=== PATIENT | female | born 2000 | race Caucasian/White ===

== ENCOUNTER 2018-10-02 14:54 | Emergency (ER) | payer BC, SELFPAY ==
[2018-10-02] VITALS (9 sets, daily range): BP systolic 117–130; BP diastolic 56–67; PULSE 68–90; RESP 16–21; TEMP 36.7; O2SAT 97–100
--- NOTE | 2018-10-02 15:19 | DI.RAD_ITS ---
SYMPTOM/DIAGNOSIS: COUGH, FEVER PA AND LATERAL CHEST: The heart is normal in size. The lungs are clear. The mediastinal structures and pleura appear intact. CONCLUSION: Normal chest.
--- NOTE | 2018-10-02 15:20 | W.ED.GENAD ---
Discharge Plan Disposition Patient Disposition: HOME Condition: Improving Discharge Details Chief Complaint: Sorethroat Clinical Impression: Acute streptococcal pharyngitis Primary Care Provider: Kristy Valadez ED Provider: Jose Noble Home Meds and New Rx's Prescriptions: New cefdinir 300 mg capsule 300 mg PO Q12H 10 Days Qty: 20 RF: 0 Continued levonorgestrel-ethinyl estrad [Aviane] 1 EACH tablet 1 tab-cap PO DAILY Qty: 3 RF: 3 multivitamin 1 EACH tablet 1 ea PO DAILY RF: 0 Discharge Instructions Instructions: Pharyngitis (ED) Additional Instructions: Please stop your amoxicillin, begin Cefdinir as prescribed. Tylenol and/or ibuprofen as needed for pain. Small, frequent sips of fluids to maintain hydration. May use popsicles for comfort. Return for worsening or any other acute concerns, follow-up follow-up with primary care if not improving in 3 to 5 days time. Medical Decision Making 18-year-old female presents from home with 7 days of sore throat despite being treated with amoxicillin 2 times daily for which she states was positive strep throat. On exam she has evidence of persistent pharyngitis. She is afebrile and otherwise well-appearing. Differential diagnosis would include persistent streptococcal pharyngitis, must exclude concomitant glandular fever/mononucleosis. As well patient has developed a cough and subjective report of fever. She is referred for laboratory testing, rapid strep test, chest x-ray and screening EKG. Rapid strep test was positive, Diagnostics are otherwise reassuring. Chest x-ray unremarkable. Patient improved with dexamethasone for its anti-inflammatory properties. She has had minimal response to twice daily amoxicillin for known streptococcal pharyngitis, I will switch her to a course of Cefdinir. She is stable and improved appropriate for discharge to home. Lab Data Lab results reviewed: Yes I reviewed the patient's lab results. ECG Data Attestation: I personally reviewed and interpreted this ECG (s) as follows: Interpretation: Normal sinus rhythm, rate of 83, QRS is narrow, no ST segment elevation HPI General Mode of arrival: ambulatory. Date/Time Provider Initiated Documentation: 10/02/18 14:58. Limitations to Documentation: no limitations. Information obtained by: patient. History of Present Illness 18 year old F presents to the emergency department with the chief complaint of Persistent sore throat x7 days despite amoxicillin, described as moderate, Quality is described as aching and dull, and is localized to the chest. Patient reports no radiation. Patient started experiencing this day(s) and it has been constant. No relieving factors improve symptom(s), No exacerbating factors reported . Patient notes cough and fever/chills. Patient did receive the following treatments prior to arrival, NSAID Related Data Home Medications Medication Instructions Recorded Confirmed levonorgestrel-ethinyl estrad 1 tab-cap PO DAILY #3 pack 12/08/17 [Aviane] multivitamin 1 ea PO DAILY 01/22/18 cefdinir 300 mg PO Q12H 10 Days #20 cap 10/02/18 Previous Rx's Medication Instructions Recorded levonorgestrel-ethinyl estrad 1 tab-cap PO DAILY #3 pack 12/08/17 [Aviane] cefdinir 300 mg PO Q12H 10 Days #20 cap 10/02/18 Allergies Allergy/AdvReac Type Severity Reaction Status Date / Time No Known Drug Allergies Allergy Unverified 12/13/17 21:11 seasonal allergies Allergy Congestion Uncoded 12/13/17 21:11 General Stated Complaint: Sorethroat BORIS: 3 Review of Systems Review of Systems No leg pain or swelling. No recent travel. Positive sick contacts with her sister. Patient has been taking amoxicillin for 7 days time and ongoing sore throat. 8 systems reviewed and otherwise negative [facility] Medical History Menstrual irregularity Syncope Urticaria Surgical History Rembrandt teeth extractions (~2014) Family History Grandfather Essential hypertension Myocardial infarction Mother No problems noted. Father No problems noted. Sister No problems noted. Grandfather No problems noted. Grandmother No problems noted. Grandmother No problems noted. Social History Smoking/Tobacco Use Status: Never Alcohol Intake: never Substance use type: does not use Seatbelt use: always Do you feel safe at home: Yes Do you feel safe in your relationship?: Yes Exam Narrative Exam Narrative: GEN: awake, alert, oriented 3. Pleasant, well groomed, interactive. HEAD: Normocephalic, atraumatic ENT: Mucous membranes moist, with swollen tonsillar pillars with scant white exudate present on the left. The uvula is midline and there is no asymmetry, tympanic membranes clear bilaterally, External ear exam unremarkable EYES: PERRL, EOMI NECK: Full ROM, tender anterior submandibular MILDRED, no menigismus CHEST/RESP: Nontender, clear to auscultation bilateral, no wheeze/rhonchi/rales CARDIOVASCULAR: RRR, no murmur, rub demi. 2+ Rad pulse bilateral ABDOMEN: Soft, nontender, no mass. +Bowel sounds EXT: Full ROM, no edema, no rash Neuro: Grossly normal neurologic exam, conversant, interactive. Psych: Speech fluent, thoughts congruent, affect normal Course Vital Signs Temperature 36.7 C 10/02/18 15:09 Pulse 80 10/02/18 15:09 Respiratory Rate 16 10/02/18 15:09 Blood Pressure 117/56 L 10/02/18 15:09 Pulse Oximetry 100 10/02/18 15:09 Temperature 36.7 C 10/02/18 15:09 Temperature Source Skin 10/02/18 15:09 Pulse 80 10/02/18 15:09 Respiratory Rate 16 10/02/18 15:09 Respiratory Effort Non-Labored 10/02/18 15:19 Blood Pressure 117/56 L 10/02/18 15:09 Blood Pressure Position Sitting 10/02/18 15:09 Pulse Oximetry 100 10/02/18 15:09 Oxygen Delivery Method Room Air 10/02/18 15:09 Oxygen Flow Rate 0 10/02/18 15:09 Pain Level 5 10/02/18 15:09
--- NOTE | 2018-10-02 15:24 | ED.GENADUL_ITS ---
Discharge Plan Disposition Patient Disposition: HOME Condition: Improving Discharge Details Chief Complaint: Sorethroat Clinical Impression: Acute streptococcal pharyngitis Primary Care Provider: Kristy Valadez ED Provider: Jose Noble Home Meds and New Rx's Prescriptions: New cefdinir 300 mg capsule 300 mg PO Q12H 10 Days Qty: 20 RF: 0 Continued levonorgestrel-ethinyl estrad [Aviane] 1 EACH tablet 1 tab-cap PO DAILY Qty: 3 RF: 3 multivitamin 1 EACH tablet 1 ea PO DAILY RF: 0 Discharge Instructions Instructions: Pharyngitis (ED) Additional Instructions: Please stop your amoxicillin, begin Cefdinir as prescribed. Tylenol and/or ibuprofen as needed for pain. Small, frequent sips of fluids to maintain hydration. May use popsicles for comfort. Return for worsening or any other acute concerns, follow-up follow-up with primary care if not improving in 3 to 5 days time. Medical Decision Making 18-year-old female presents from home with 7 days of sore throat despite being treated with amoxicillin 2 times daily for which she states was positive strep throat. On exam she has evidence of persistent pharyngitis. She is afebrile and otherwise well-appearing. Differential diagnosis would include persistent streptococcal pharyngitis, must exclude concomitant glandular fever/mononucleosis. As well patient has developed a cough and subjective report of fever. She is referred for laboratory testing, rapid strep test, chest x-ray and screening EKG. Rapid strep test was positive, Diagnostics are otherwise reassuring. Chest x- ray unremarkable. Patient improved with dexamethasone for its anti-inflammatory properties. She has had minimal response to twice daily amoxicillin for known streptococcal pharyngitis, I will switch her to a course of Cefdinir. She is stable and improved appropriate for discharge to home. Lab Data Lab results reviewed: Yes I reviewed the patient's lab results. ECG Data Attestation: I personally reviewed and interpreted this ECG (s) as follows: Interpretation: Normal sinus rhythm, rate of 83, QRS is narrow, no ST segment elevation HPI General Mode of arrival: ambulatory . Date/Time Provider Initiated Documentation: 10/02/18 14:58 . Limitations to Documentation: no limitations . Information obtained by: patient . History of Present Illness 18 year old F presents to the emergency department with the chief complaint of Persistent sore throat x7 days despite amoxicillin, described as moderate, Quality is described as aching and dull, and is localized to the chest. Patient reports no radiation. Patient started experiencing this day(s) and it has been constant. No relieving factors improve symptom(s), No exacerbating factors reported . Patient notes cough and fever/chills. Patient did receive the following treatments prior to arrival, NSAID Related Data Home Medications Medication Instructions Recorded Confirmed levonorgestrel-ethinyl estrad 1 tab-cap PO DAILY #3 pack 12/08/17 [Aviane] multivitamin 1 ea PO DAILY 01/22/18 cefdinir 300 mg PO Q12H 10 Days #20 cap 10/02/18 Previous Rx's Medication Instructions Recorded levonorgestrel-ethinyl estrad 1 tab-cap PO DAILY #3 pack 12/08/17 [Aviane] cefdinir 300 mg PO Q12H 10 Days #20 cap 10/02/18 Allergies Allergy/AdvReac Type Severity Reaction Status Date / Time No Known Drug Allergies Allergy Unverified 12/13/17 21:11 seasonal allergies Allergy Congestion Uncoded 12/13/17 21:11 General Stated Complaint: Sorethroat BORIS: 3 Review of Systems Review of Systems No leg pain or swelling. No recent travel. Positive sick contacts with her sister. Patient has been taking amoxicillin for 7 days time and ongoing sore throat. 8 systems reviewed and otherwise negative [facility] Medical History Menstrual irregularity Syncope Urticaria Surgical History Sylvester teeth extractions (~2014) Family History Grandfather Essential hypertension Myocardial infarction Mother No problems noted. Father No problems noted. Sister No problems noted. Grandfather No problems noted. Grandmother No problems noted. Grandmother No problems noted. Social History Smoking/Tobacco Use Status: Never Alcohol Intake: never Substance use type: does not use Seatbelt use: always Do you feel safe at home: Yes Do you feel safe in your relationship?: Yes Exam Narrative Exam Narrative: GEN: awake, alert, oriented 3. Pleasant, well groomed, interactive. HEAD: Normocephalic, atraumatic ENT: Mucous membranes moist, with swollen tonsillar pillars with scant white exudate present on the left. The uvula is midline and there is no asymmetry, tympanic membranes clear bilaterally, External ear exam unremarkable EYES: PERRL, EOMI NECK: Full ROM, tender anterior submandibular MILDRED, no menigismus CHEST/RESP: Nontender, clear to auscultation bilateral, no wheeze/rhonchi/rales CARDIOVASCULAR: RRR, no murmur, rub demi. 2+ Rad pulse bilateral ABDOMEN: Soft, nontender, no mass. +Bowel sounds EXT: Full ROM, no edema, no rash Neuro: Grossly normal neurologic exam, conversant, interactive. Psych: Speech fluent, thoughts congruent, affect normal Course Vital Signs Temperature 36.7 C 10/02/18 15:09 Pulse 80 10/02/18 15:09 Respiratory Rate 16 10/02/18 15:09 Blood Pressure 117/56 L 10/02/18 15:09 Pulse Oximetry 100 10/02/18 15:09 Temperature 36.7 C 10/02/18 15:09 Temperature Source Skin 10/02/18 15:09 Pulse 80 10/02/18 15:09 Respiratory Rate 16 10/02/18 15:09 Respiratory Effort Non-Labored 10/02/18 15:19 Blood Pressure 117/56 L 10/02/18 15:09 Blood Pressure Position Sitting 10/02/18 15:09 Pulse Oximetry 100 10/02/18 15:09 Oxygen Delivery Method Room Air 10/02/18 15:09 Oxygen Flow Rate 0 10/02/18 15:09 Pain Level 5 10/02/18 15:09
[2018-10-02] MEDS: Dexamethasone 4 MG/ML VIAL 8 MG IVP (15:25)
[2018-10-02 15:35] LABS: Absolute Basophil Count 0.04 k/cumm (0.0-0.2); Absolute Eosinophil Count 0.04 k/cumm (0.0-0.7); Absolute Lymphocyte Count 2.52 k/cumm (1.2-3.4); Absolute Neutrophil Count 3.52 k/cumm (1.2-6.7); Basophils % 0.6; Eosinophils % 0.6; HCT 38.4 % (36.0-46.0); HGB 12.4 g/dL (12.0-15.5); Mean Corp. HGB Concentration 32.3 g/dL (32.0-36.0); Mean Corpuscular Hemoglobin 29.7 pg (27.0-33.0); Mean Corpuscular Volume 92.1 fL (80-95); Mean Platelet Volume 10.4 fL (8.0-11.0); Monocytes % 10.3; Neutrophils % 51.5; Platelet Count 275 x1000/uL (130-400); RBC 4.17 m/cumm (4.00-5.20); RBC Distribution Width 13.4 % (11.7-14.6); White Blood Cell Count 6.82 k/cumm (4.4-10.8)
[2018-10-02 15:44] LABS: Mono Screening Negative (Negative)
[2018-10-02 15:49] LABS: ALT 21 U/L (12-78); AST 12 U/L (15-37); Albumin 3.5 g/dL (3.4-5.0); Alkaline Phosphatase 60 U/L (46-116); Anion Gap 7.3 mmol/L (3-11); BUN 8 mg/dL (7-18); Bilirubin, Total 0.5 mg/dL (0.2-1.0); CO2 29.7 mmol/L (21.0-32.0); CREATININE 0.77 mg/dL (0.55-1.02); Chloride 102 mmol/L (98-107); Glucose 98 mg/dL (70-100); Potassium 3.8 mmol/L (3.5-5.1); Sodium 139 mmol/L (136-145); Total Protein 7.8 g/dL (6.4-8.2)
--- NOTE | 2018-10-02 16:18 | DI.VRAD_ITS ---
EXAM: XR Chest, 2 Views EXAM DATE/TIME: 10/02/2018 3:21 PM CLINICAL HISTORY: 18 years old, female; Signs and symptoms; Cough and fever; Patient HX: Cough, fever; Per PT: Cough for month TECHNIQUE: Imaging protocol: XR of the chest, 2 views. COMPARISON: CR ABD FLAT UPRIGHT PA CHEST 12/13/2017 9:58 PM FINDINGS: Lungs: Unremarkable. No consolidation. Pleural space: Unremarkable. No pleural effusion. No pneumothorax. Heart/Mediastinum: Unremarkable. No cardiomegaly. Bones/joints: Unremarkable. IMPRESSION: No acute findings. Dictated and Authenticated by: Jonh Ivan MD. Ordering:SUNIL Garcia MD
[2018-10-02] MEDS: Cefdinir 300 MG CAP PO (16:50)
== END 2018-10-02 16:55 | disposition home or self-care (01) ==
LOC: ER 17:05
PROVIDERS: Emergency Provider Emergency Medicine; PCP Nurse Practitioner Family
DX: J02.0 Streptococcal pharyngitis (principal); R05 Cough; R50.9 Fever, unspecified
CPT/HCPCS: 36415; 80053; 81025; 87880; 93005; 96374; 96375; 99285; 71046; 85025; 86308; 93010; 99284; J1100

== ENCOUNTER 2018-10-16 18:57 | Outpatient (REF) | payer BC, SELFPAY | END 2018-10-16 19:17 | LOC: LBN 18:57 | PROVIDERS: PCP Nurse Practitioner Family; Visit Provider Nurse Practitioner Family | DX: J02.0 Streptococcal pharyngitis (principal) | CPT/HCPCS: 87070 ==

== ENCOUNTER 2018-11-18 00:46 | Outpatient (CLI) | payer BC, SELFPAY ==
--- NOTE | 2018-11-18 07:30 | MERGE_ITS ---
*[facility]* *[facility]* [address] [place] [address] Date of study: 11/18/2018 Transthoracic Echocardiography M-mode, complete 2D, complete spectral Doppler, and color Doppler *STUDY CONCLUSIONS* Impressions: Normal study. Summary: 1. Left ventricle: The cavity size was normal. Wall thickness was normal. Systolic function was normal. The estimated ejection fraction was 60-65%. Wall motion was normal; there were no regional wall motion abnormalities. 2. Right ventricle: The cavity size was normal. Wall thickness was normal. Systolic function was normal. *PATIENT PRESENTATION* Height: 165.1cm ((65in) ) S/D Pressure: 114 / 65 Weight: 72.6kg ((159.7lb) ) BSA: 1.84m^2 Test start time: 07:40 AM. Test stop time: 08:40 AM. PERFORMING Unknown PERFORMING [facility] EXTENSION DIVISION DIRECTOR RT Adrián (R)(CT), [facility] ORDERING Kristy Valadez REFERRING Kristy Valadez *PROCEDURE DATA* Procedure information: The patient was identified by two identifiers. This study was interpreted by [facility]. Pertinent images and digital data are archived for permanent storage and are available for subsequent review. No prior study was available for comparison. Study status: Routine. Transthoracic echocardiography. M-mode, complete 2D, complete spectral Doppler, and color Doppler. A Transthoracic Echocardiogram was performed. Scanning was performed from the parasternal, apical, subcostal, and suprasternal notch acoustic windows. Images were obtained using an [id number] cardiac ultrasound machine. Image quality was good. Study completion: The patient tolerated the procedure well. There were no complications. History: PMH: Dizziness with running. Known systolic murmur r68.89 decreased exercise tolerance. *CARDIAC ANATOMY* Left ventricle: The cavity size was normal. Wall thickness was normal. Systolic function was normal. The estimated ejection fraction was 60-65%. Wall motion was normal; there were no regional wall motion abnormalities. Diastolic parameters were normal. Aortic valve: Trileaflet; normal thickness leaflets. Mobility was not restricted. Doppler: Transvalvular velocity was within the normal range. There was no stenosis. There was no significant regurgitation. VTI ratio of LVOT to aortic valve: 0.69. Valve area (VTI): 2.2cm^2. Indexed valve area (VTI): 1.2cm^2/m^2. Peak velocity ratio of LVOT to aortic valve: 0.71. Valve area (Vmax): 2.3cm^2. Indexed valve area (Vmax): 1.3cm^2/m^2. Mean velocity ratio of LVOT to aortic valve: 0.59. Valve area (Vmean): 1.9cm^2. Indexed valve area (Vmean): 1cm^2/m^2. Mean gradient (S): 4.6mm Hg. Peak gradient (S): 7.3mm Hg. Aorta: Aortic root: The aortic root was normal in size. Ascending aorta: The ascending aorta was normal in size. Mitral valve: Structurally normal valve. Mobility was not restricted. Doppler: Transvalvular velocity was within the normal range. There was no evidence for stenosis. There was no significant regurgitation. Valve area by pressure half-time: 4.2cm^2. Indexed valve area by pressure half-time: 2.3cm^2/m^2. Peak gradient (D): 3.1mm Hg. Left atrium: The atrium was normal in size. Right ventricle: The cavity size was normal. Wall thickness was normal. Systolic function was normal. Pulmonic valve: Structurally normal valve. Doppler: Transvalvular velocity was within the normal range. There was no evidence for stenosis. There was trivial regurgitation. Peak gradient (S): 3.5mm Hg. Tricuspid valve: Structurally normal valve. Doppler: Transvalvular velocity was within the normal range. There was no evidence for stenosis. There was trivial regurgitation. Pulmonary artery: Systolic pressure could not be accurately estimated. Right atrium: The atrium was normal in size. Pericardium: There was no pericardial effusion. Systemic veins: Inferior vena cava: Well visualized. The vessel was patent and normal in size. The respirophasic diameter changes were in the normal range (greater than or equal to 50%). Baseline ECG: Normal sinus rhythm. Measurements Left ventricle Value Reference LV ID, ED, PLAX 4.3 cm 3.5 - 6.0 LV ID, ES, PLAX 2.7 cm 2.1 - 4.0 LV PW thickness, ED, PLAX 0.9 cm LV end-diastolic volume, 1-p A2C 91 ml LV ejection fraction, 1-p A2C 64 % LV end-diastolic volume, 1-p A4C 100 ml LV ejection fraction, 1-p A4C 66 % LV e', lateral 0.222 m/sec LV E/e', lateral 4 LV e', medial 0.131 m/sec LV E/e', medial 7 LV e', average 0.176 m/sec LV E/e', average 5 Ventricular septum Value Reference IVS thickness, ED, PLAX 0.8 cm LVOT Value Reference LVOT ID, A-P 2.0 cm LVOT area 3.3 cm^2 LVOT peak velocity, S 0.96 m/sec LVOT mean velocity, S 0.61 m/sec LVOT VTI, S 22.0 cm LVOT peak gradient, S 3.7 mm Hg LVOT mean gradient, S 1.8 mm Hg Stroke volume (SV), LVOT DP 72 ml Stroke index (SV/bsa), LVOT DP 39 ml/m^2 Aortic valve Value Reference Aortic valve peak velocity, S 1.4 m/sec Aortic valve mean velocity, S 1.03 m/sec Aortic valve VTI, S 32.0 cm Aortic mean gradient, S 4.6 mm Hg Aortic peak gradient, S 7.3 mm Hg VTI ratio, LVOT/AV 0.69 Aortic valve area, VTI 2.2 cm^2 Velocity ratio, peak, LVOT/AV 0.71 Aortic valve area, peak velocity 2.3 cm^2 Velocity ratio, mean, LVOT/AV 0.59 Aortic valve area, mean velocity 1.9 cm^2 Aortic valve area/bsa, mean velocity 1 cm^2/m^2 Aorta Value Reference Aortic root ID, ED 2.7 cm Ascending aorta ID, A-P, S 2.2 cm RVOT Value Reference RVOT VTI, S 17.5 cm Left atrium Value Reference LA ID, A-P, ES 2.8 cm LA ID/bsa, A-P 1.5 cm/m^2 <=2.2 LA area, ES, A4C 14.9 cm^2 8.8 - 23.4 LA area, ES, A2C 14 cm^2 LA volume/bsa, ES, 1-p A4C 22 ml/m^2 LA volume, ES, 2-p 38 ml LA volume/bsa, ES, 2-p 20 ml/m^2 LA/aortic root ratio 1.03 Mitral valve Value Reference Mitral E-wave peak velocity 0.87 m/sec Mitral A-wave peak velocity 0.35 m/sec Mitral deceleration time 180 ms 150 - 230 Mitral pressure half-time 52 ms Mitral peak gradient, D 3.1 mm Hg Mitral E/A ratio, peak 2.47 Mitral valve area, PHT, DP 4.2 cm^2 Pulmonary veins Value Reference Pulmonary vein peak velocity, S 0.47 m/sec Pulmonary vein peak velocity, D 0.67 m/sec Pulmonary vein velocity ratio, peak, 0.71 S/D Tricuspid valve Value Reference Tricuspid regurg peak velocity 2.2 m/sec Tricuspid peak RV-RA gradient 19.6 mm Hg Right atrium Value Reference RA area, ES, A4C 8.8 cm^2 8.3 - 19.5 Pulmonic valve Value Reference Pulmonic peak gradient, S 3.5 mm Hg Legend: (L) and (H) ingrid values outside specified reference range. I have personally reviewed the images and have reviewed and edited the reported findings. Electronically signed by Augustine Dozier 11/18/2018 09:20
== END 2018-11-18 01:06 ==
PROVIDERS: PCP Nurse Practitioner Family; Visit Provider Nurse Practitioner Family
DX: R42 Dizziness and giddiness (principal); R01.1 Cardiac murmur, unspecified; R68.89 Other general symptoms and signs
CPT/HCPCS: 93306

== ENCOUNTER 2019-04-26 05:59 | Day surgery (SDC) | payer BC, SELFPAY ==
[2019-04-26] VITALS (7 sets, daily range): BP systolic 118–147; BP diastolic 55–70; PULSE 68–81; RESP 12–24; TEMP 36.4–37; O2SAT 98–100
[2019-04-26] MEDS: Lactated Ringers 1,000 ML 80 ML IV (07:30)
--- NOTE | 2019-04-26 07:33 | W.PM.DSUDISC ---
Discharge Plan Disposition Patient Disposition: HOME Condition: Good Discharge Details Reason For Visit: tonsils and frenulum Attending Provider: Saleem Arriola Primary Care Provider: Kristy Valadez Home Meds and New Rx's Prescriptions: No Action levonorgestrel-ethinyl estrad [Aviane] 1 EACH tablet 1 tab-cap PO DAILY Qty: 3 RF: 3 Discharge Instructions Additional Instructions: see sheet Activity:: Activity as Tolerated Remove Dressings/Wound Care:: 24 hours Shower/Bathe:: 24 hours Diet:: As Tolerated DS: Diagnosis Discharge Diagnosis (1) Ankyloglossia: Status: Acute (2) Tonsillar calculus: Status: Acute (3) Tonsillar hypertrophy: Status: Acute (4) Chronic tonsillitis: Status: Acute (5) Chronic rhinitis: Status: Acute
[2019-04-26] MEDS: Oxymetazolone 0.05% SPRAY 15 ML BTL (07:59)
--- NOTE | 2019-04-26 08:00 | TONSIL_PTH ---
PATIENT: Chapis Hendrickson LOC: [facility] U#:[id number] AGE/SX: 18/F ROOM: RE04/26/[address]: Saleem Arriola DO : 2000 BED: DIS: 04/26/2019 SPEC #: [id number] RECD: 04/26/19 12:41 STATUS: KOURTNYE REQ #: [id number] BARBRA: 04/26/19 08:[address]: Saleem Arriola DEPT: Surgical Specimen RECD BY: Claudia Ellington ENTERED: 04/26/19 12:43 SP TYPE: TONSIL OTHR DR: MILA Mendez Tissues: 1 - TONSIL AGE 17 & OVER 2 - TONSIL AGE 17 & OVER Procedures: GROSS AND MICRO LEVEL 3 Comments: [id number]
[2019-04-26] MEDS: oxyCODONE 5 mg/Acetaminophen 325 mg TAB 1 TAB PO (09:23)
--- NOTE | 2019-04-26 10:24 | ROE_ITS ---
DATE OF PROCEDURE: April 26, 2019 PREOPERATIVE DIAGNOSIS: 1. History of Strep pharyngitis. 2. Chronic tonsillitis. 3. Chronic tonsillar hypertrophy. 4. Tonsillar calculus. 5. Chronic rhinitis. 6. Ankyloglossia. POSTOPERATIVE DIAGNOSIS: Same. PROCEDURE: Tonsillectomy and frenulectomy. SURGEON: Saleem Arriola D.O. ANESTHESIA: General. ESTIMATED BLOOD LOSS: 1 cc COMPLICATIONS: None. CONDITION: The patient tolerated the procedure well and was stable to PACU. FINDINGS: 3+ cryptic tonsils and prominent frenulum dorsal tongue to floor of mouth, limiting mobili ty. INDICATIONS FOR PROCEDURE: This is a pleasant 18-year-old female who presents with a history of the above-stated chronic tonsillar complaints as well as tongue tie. The decision was made forth to proc eed with tonsillectomy and frenulectomy. Risks and complications were discussed in detail. Consent was placed in the Chart. PROCEDURE IN DETAIL: Patient was brought back to the operating suite in stable condition, placed sup ine on the operating table, and intubated in normal fashion. The table was rotated 90 degrees. There was no evidence of submucosal clefting or bifid uvula. The McIvor retractor was placed in the oral ca vity and suspended from the Wright stand. The right tonsil was grasped in the superior pole and mediali zed. Pinpoint cautery was used to develop the peritonsillar fascial plane, dissection was carried out to the upper and mid portions of the tonsil with final amputation conducted with suction cautery. Th ere was no bleeding within the right tonsillar fossa. Next, the left tonsil was grasped in the superi or pole with a curved Allis forceps and medialized. Pinpoint cautery was used to develop the peritons illar fascial plane. Dissection was carried out in the plane in the superior and mid portion of the t onsils. Final amputation was conducted with suction cautery without bleeding within left fossa, Valsa lva was performed without bleeding. TMJ's were checked and were free of dislocation. Gastric contents suctioned. The endotracheal tube was moved to the left gutter, the floor mouth was exposed. The prominent, teth ered frenulum of the undersurface of the tongue to the floor of the mouth was lysed with cautery and no sutures required. Frenulectomy performed with increased mobility. The patient tolerated the proc edure well and went to PACU in stable condition.
== END 2019-04-26 09:55 | disposition home or self-care (01) ==
PROVIDERS: PCP Nurse Practitioner Family; Visit Provider Otolaryngology Otolaryngology/Facial Plastic Surgery
PROC: (CPT 42826; principal; 2019-04-26 07:30)
DX: J35.01 Chronic tonsillitis (principal); Q38.1 Ankyloglossia; J31.0 Chronic rhinitis; J35.8 Other chronic diseases of tonsils and adenoids
CPT/HCPCS: 42826; 41010; 81025; 88304; J1100; J2405; J3010

== ENCOUNTER 2019-06-18 11:21 | Outpatient (REF) | payer BC, SELFPAY | END 2019-06-18 11:41 | LOC: LBN 11:21 | PROVIDERS: PCP Nurse Practitioner Family; Visit Provider Nurse Practitioner Family | DX: Z11.3 Encounter for screening for infections with a predominantly sexual mode of transmission (principal) | CPT/HCPCS: 87491; 87591 ==

== ENCOUNTER 2019-06-23 18:13 | Outpatient (REF) | payer BC, SELFPAY ==
[2019-06-25 14:27] LABS: Chlamydia Result Negative (Negative); GC Result Negative (Negative)
== END 2019-06-23 18:33 ==
LOC: LBN 18:13
PROVIDERS: PCP Nurse Practitioner Family; Visit Provider Nurse Practitioner Family
DX: Z11.3 Encounter for screening for infections with a predominantly sexual mode of transmission (principal)
CPT/HCPCS: 87491; 87591

== ENCOUNTER 2019-08-17 15:46 | Outpatient (REF) | payer BC, SELFPAY ==
--- NOTE | 2019-08-17 15:10 | PAPFT_PTH ---
PATIENT: Chapis Hendrickson LOC: [facility] U#:[id number] AGE/SX: 18/F ROOM: RE08/17/[address]: Ladonna Terry, PhD PROPERTY MANAGEMENT COORDINATOR : 2000 BED: DIS: 08/17/2019 SPEC #: [id number] RECD: 08/18/19 12:59 STATUS: KOURTNEY REYanick #: [id number] BARBRA: 08/17/19 15:[address]: Ladonna Terry DEPT: [facility] Cytology RECD BY: Claudia Ellington Tissues: 1 - CX/ENDOCX FOR PAP SMEARS Procedures: PAP THIN PREP/UVM Screening Comments: [id number] (CHLAMYDIA/GC)
[2019-08-20 14:55] LABS: Chlamydia Result Negative (Negative); GC Result Negative (Negative)
== END 2019-08-17 16:06 ==
LOC: LBN 15:46
PROVIDERS: PCP Nurse Practitioner; Visit Provider Nurse Practitioner
DX: Z11.3 Encounter for screening for infections with a predominantly sexual mode of transmission (principal); Z12.4 Encounter for screening for malignant neoplasm of cervix; Z11.51 Encounter for screening for human papillomavirus (HPV)
CPT/HCPCS: 87491; 87591; 88142

== ENCOUNTER 2019-12-14 20:13 | Outpatient (REF) | payer BC, SELFPAY ==
[2019-12-15 14:29] LABS: GC Result Negative (Negative)
[2019-12-15 20:08] LABS: Chlamydia Result Positive (Negative)
== END 2019-12-14 20:33 ==
LOC: LBN 20:13
PROVIDERS: PCP Nurse Practitioner; Visit Provider Nurse Practitioner Family
DX: Z11.3 Encounter for screening for infections with a predominantly sexual mode of transmission (principal)
CPT/HCPCS: 87491; 87591

== ENCOUNTER 2019-12-16 02:49 | Outpatient (CLI) | payer BC, SELFPAY ==
[2019-12-16 19:02] LABS: Calculated LDL 137 mg/dL (<100); Cholesterol 201 mg/dL (<200); HDL Cholesterol 53 mg/dL (40-60); Triglyceride 59 mg/dL (<150)
[2019-12-20 09:25] LABS: Hepatitis B Surface Ag Negative (Negative)
[2019-12-20 10:03] LABS: Hepatitis C Ab w Rflx HCV PCR Negative (Negative)
[2019-12-20 11:11] LABS: HIV-1/2 Ag & Ab Screen Negative (Negative)
[2019-12-20 13:21] LABS: Syphilis Total Ab w/Reflex Nonreactive (Nonreactive)
== END 2019-12-16 03:09 ==
PROVIDERS: PCP Nurse Practitioner; Visit Provider Nurse Practitioner Family
DX: Z13.6 Encounter for screening for cardiovascular disorders (principal); Z11.4 Encounter for screening for human immunodeficiency virus [HIV]; Z11.59 Encounter for screening for other viral diseases
CPT/HCPCS: 36415; 80061; 86803; 87340; 87389; 86780

== ENCOUNTER 2020-03-24 19:16 | Outpatient (REF) | payer BC, SELFPAY ==
[2020-03-27 15:13] LABS: Chlamydia Result Negative (Negative); GC Result Negative (Negative)
== END 2020-03-24 19:36 ==
LOC: LBN 19:16
PROVIDERS: PCP Nurse Practitioner; Visit Provider Nurse Practitioner Family
DX: Z11.3 Encounter for screening for infections with a predominantly sexual mode of transmission (principal)
CPT/HCPCS: 87491; 87591

== ENCOUNTER 2020-05-17 01:40 | Outpatient (CLI) | payer BC, SELFPAY ==
[2020-05-17 07:44] LABS: HCT 39.5 % (36.0-46.0); HGB 13.3 g/dL (11.2-15.7); MCH 30.9 pg (27.0-33.0); MCHC 33.7 % (32.0-36.0); MCV 91.9 fL (80-95); MPV 10.8 fL (8.0-11.0); Platelet Count 225 10^3/uL (130-400); RDW 12.3 % (11.7-14.6); RDW-SD 41.4 fL; WBC 4.74 10^3/uL (4.4-10.8)
[2020-05-17 08:01] LABS: FREE T4 0.96 ng/dL (0.76-1.46); TSH 1.72 uIU/mL (0.36-3.74)
== END 2020-05-17 02:00 ==
PROVIDERS: PCP Nurse Practitioner; Visit Provider Nurse Practitioner Family
DX: R68.89 Other general symptoms and signs (principal)
CPT/HCPCS: 36415; 85027; 84439; 84443

== ENCOUNTER 2020-08-23 13:49 | Observation (INO) | payer BC, SELFPAY ==
[2020-08-23] VITALS (45 sets, daily range): BP systolic 102–135; BP diastolic 42–91; PULSE 62–92; RESP 11–21; TEMP 36.6–37.2; O2SAT 96–100
[2020-08-23] MEDS: Normal Saline Flush 10 ML SYR IVP (14:00)
--- NOTE | 2020-08-23 14:15 | RT.EKG_ITS ---
APPROVED REPORT Exam: Resting ECG Patient Location: E HR:75 bpm ECG Measurements Heart Rate 75 AXIS TN 176 P 78 QRSd 91 QRS 61 QT 383 T 42 QTc 427 Conclusion Sinus rhythm...normal P axis, V-rate 60- 99
--- NOTE | 2020-08-23 14:31 | W.ED.GENAD ---
Discharge Plan Disposition Patient Disposition: [facility] INPATIENT Condition: Stable Discharge Details Clinical Impression: Migraine, Paresthesia, Cyanosis of skin Admit Date/Time: 08/23/20 22:12 Admit Provider: Dhruv Vieira Attending Provider: Dhruv Vieira Primary Care Provider: Ladonna Terry ED Provider: Darek Early Discharge Data Discharge Date/Time-TO BE ENTERED AT DEPARTURE: 08/23/20 22:39 Medical Decision Making <Thomas Rodríguez MD - Last Filed: 09/08/20 17:22> 1451??19-year-old female with history of migraine headaches, here with 5 days of headache and now right hand paresthesia and mild cyanosis as well as left foot paresthesia. She has some visual changes including static discoloration right eye. Consider subclavian steal syndrome versus vasculitis. I did call and speak with Dr. Frost about the patient's presentation and she agreed with CTA. Screening ECG was reviewed and interpreted by me: Sinus rhythm 75 bpm, normal axis, please report. We will check labs including CBC ESR and CRP. --Initial labs reviewed and nondiagnostic. WBC and CBC normal. ESR pending. CTA results pending. 1630??I called radiology and images being sent to [facility], awaiting result. Care signed out to MAYUR Early with plan to follow-up on CTA, remaining labs including ESR, and reassess patient for disposition. Lab Data Labs: Laboratory Tests Range/Units 08/23/20 08/23/20 08/23/20 14:00 14:00 14:00 WBC (4.4-10.8) 10^3/uL 6.43 RBC (3.93-5.22) 10^6/uL 4.25 Hgb (11.2-15.7) g/dL 13.1 Hct (36.0-46.0) % 38.8 MCV (80-95) fL 91.3 MCH (27.0-33.0) pg 30.8 MCHC (32.0-36.0) % 33.8 RDW (11.7-14.6) % 11.9 Plt Count (130-400) 10^3/uL 230 MPV (8.0-11.0) fL 11.1 H Immature Gran % 0.3 Neutrophils % 50.9 Lymphocytes % 38.7 Monocytes % 8.6 Eosinophils % 0.6 Basophils % 0.9 Nucleated RBC % % 0 Absolute Neutrophils (1.2-6.7) 10^3/uL 3.27 Absolute Lymphocytes (1.2-3.4) 10^3/uL 2.49 Absolute Monocytes (0.1-0.8) 10^3/uL 0.55 Absolute Eosinophils (0.0-0.7) 10^3/uL 0.04 Absolute Basophils (0.0-0.2) 10^3/uL 0.06 Sodium (136-145) mmol/L 141 Potassium (3.5-5.1) mmol/L 3.5 Chloride (98-107) mmol/L 103 Carbon Dioxide (21.0-32.0) mmol/L 29.2 Anion Gap (3-11) mmol/L 8.8 BUN (7-18) mg/dL 14 Creatinine (0.55-1.02) mg/dL 0.7 Estimated GFR/1.73 m2 (mL/min/1.73m2) >= 60.00 Glucose (74-106) mg/dL 100 Calcium (8.5-10.1) mg/dL 9.5 Total Bilirubin (0.2-1.0) mg/dL 1.1 H AST (15-37) U/L 13 L ALT (14-59) U/L 22 Alkaline Phosphatase (46-116) U/L 58 Troponin I (<0.06) ng/mL < 0.05 C-Reactive Protein (0.0-0.3) mg/dL 0.23 Total Protein (6.4-8.2) g/dL 8.3 H Albumin (3.4-5.0) g/dL 4.4 <MAYUR May - Last Filed: 08/23/20 21:28> 1630 I assumed care of this 19-year-old female from Dr. Rodríguez. Please see his initial HPI and examination for further details. At time of signout awaiting CT imaging and sed rate. I did contact the lab and it was brought to my attention that the sed rate was a send out because we did not have enough reagent to run the test. Likely will not have the test result back until later this night. I introduced myself to the patient at approximately 1700. CT imaging pending. Patient is resting comfortably, no acute distress. She reports that her migraine is a 3 out of 10, mild, declines any IV Tylenol. She denies any visual changes at this time. Reports that her right hand is getting better but upon evaluation it is slightly cooler to the touch when compared to her left hand, and a minimally cyanotic. Normal radial pulse. 5-5 strength. Normal capillary refill. Patient reports left foot paresthesias. I am unable to evaluate any true deficit. Neuro, vascular, tendon intact, 5-5 strength. Received a call from virtual radiology regarding the patient's CT imaging at approximately 181. Questionable stenosis in the left P3 segment. The vessel is very small caliber and difficult to visualize. Letter consider MRA for further evaluation. Otherwise all imaging is unremarkable. I was called into the room at approximately 182, patient reports now her right foot has paresthesias. On examination, neuro, vascular, tendon intact. 5 out of 5 strength. Right hand at this time is improving when compared to my initial evaluation. However it has not resolved completely. I spoke with the vascular at [facility] at approximately 184, Dr. Devlin. After discussing the case, he felt as though given the abnormal finding on the CTA was the left P3 segment, he suggested contacting neurosurgery. At approximately 191, I was able to speak with neurosurgery MAYUR Crocker at [facility]. She was able to visualize the head CT but was unable to visualize the CTA imaging. We discussed the case. She wanted to review the imaging with her team and then she would call me back. I received a phone call at 1944 from neurology, Dr. Stewart. She recommended establishing a tele medicine neurology consultation. We needed to get the telemetry medicine neurology consultation monitor and machine down from the ICU. I was able to speak with Dr. Bruce Cuellar at approximately 2019. We reviewed the imaging together. He felt as though the head CTA was unremarkable and there was no gross abnormality of the left P3 segment. After discussing the patient's presentation and symptoms in greater length, he was planning to contact the patient via the tele neurology monitor. I received a phone call at approximately [address] Cuellar, who after doing further investigation realized that their contract is with our ICU and not the ER. He is unable to give any formal consultation or evaluate the patient. He does state that this very well could be a complex migraine recommend contacting neurology once again. I once again discussed the case with Dr. Stewart at approximately 2054. She apologized for any confusion regarding the tele neurology consultation. She feels as though the patient presents with a rather complex complaint, transfer and admission to her facility with observation would be reasonable however they do not have any beds available. Differential in her mind includes atypical migraine, vasculitis, vasospasm, thrombus, autoimmune disorder, etc. Laboratory values here are unremarkable, ESR still pending. CT imaging as above. She feels as though an echo would also be appropriate. At this point she cannot accept transfer of the patient and recommends using shared decision making to discuss options with patient. Patient continues to have a mild global headache, intermittent cyanosis and temperature discrepancy of the right hand, and paresthesias of both feet, worse in the left foot. She feels as though she would prefer to be admitted versus an urgent outpatient evaluation that would be arranged by Dr. Stewart. I believe this to be a very reasonable plan. I will discuss the case with our hospitalist team, Dr. Vieira. He is agreeable to admission and will evaluate the patient. Medical Records Medical records reviewed: Yes I reviewed the patient's medical records. HPI <Thomas Rodríguez MD - Last Filed: 09/08/20 17:22> General Mode of arrival: ambulatory. Date/Time Provider Initiated Documentation: 08/23/20 14:06. Limitations to Documentation: no limitations. Information obtained by: patient. HPI Narrative: 19-year-old female with history of migraine headaches, presents with headache over the past 5 days, persistent, moderate to severe, no modifiers. She has not taken her prescribed sumatriptan as she notes it makes her drowsy and she is had to go to work. She states last time she had a headache this severe was few months ago. She does note that she has had some visual changes including green discoloration and static. She also notes associated tingling numbness in her right hand and left foot since earlier today t. She states she noticed her right hand was discolored with a blue coloration earlier today. She has no associated chest pain. No fever. Related Data Home Medications Medication Instructions Recorded Confirmed cyanocobalamin (vitamin B-12) 500 500 mcg PO DAILY 05/12/20 09/01/20 mcg tablet sumatriptan succinate 50 mg tablet 50 mg PO ONCE PRN #90 tab 05/12/20 09/01/20 acetylcysteine 500 mg PO BID #60 cap 08/24/20 09/01/20 verapamil 40 mg PO DAILY #30 tab 08/24/20 09/01/20 Previous Rx's Medication Instructions Recorded sumatriptan succinate 50 mg tablet 50 mg PO ONCE PRN #90 tab 05/12/20 acetylcysteine 500 mg PO BID #60 cap 08/24/20 verapamil 40 mg PO DAILY #30 tab 08/24/20 Allergies Allergy/AdvReac Type Severity Reaction Status Date / Time seasonal allergies Allergy Congestion Uncoded 09/01/20 15:37 General Stated Complaint: Headache BORIS: 2 Review of Systems <Thomas Rodríguez MD - Last Filed: 09/08/20 17:22> All systems reviewed & are unremarkable except as noted in HPI and below Constitutional Constitutional: Denies fever(s) Cardiovascular Cardiovascular: Denies chest pain and Denies dyspnea Respiratory Respiratory: Denies dyspnea Neurologic Neurologic: Reports as per HPI PFSH <Thomas Rodríguez MD - Last Filed: 09/08/20 17:22> Medical History (Updated 09/01/20 @ 15:53 by Ladonna Terry NP) Chronic rhinitis Generalized anxiety disorder Irritable bowel Major depressive disorder Migraine headache with aura Oral contraceptive pill surveillance Syncope Urticaria Surgical History S/P tonsillectomy (04/26/19) Tonsillectomy and frenulectomy Family History Mother No problems noted. Father No problems noted. Sister No problems noted. Maternal Grandfather Heart disease Essential hypertension Myocardial infarction Maternal Grandmother Depression Paternal Grandfather No problems noted. Paternal Grandmother No problems noted. Social History Smoking/Tobacco Use Status: Never Smoking risk assessment performed?: Yes Alcohol Intake: never Drug use: Never Substance use type: does not use Caregiver/Support person: No Household members: friend(s) Housing: apartment Communication Needs: Corrective Lenses Do you need help understanding health information?: Never Pets and animals: Yes Pets and animals: cat(s) and other Details: jennifer Sexually active: Yes Do you think of yourself as: straight/heterosexual Current gender identity: female What is your relationship status?: never How often do you talk on the phone with friends or family?: three or more times per week How often do you get together with friends or relatives?: three or more times per week How often do you attend mosque or latter-day services?: decline to answer Do you belong to any clubs or organized social groups?: no Panel score (0-1 are the most socially isolated patients): 1 What type of physical activity do you participate in: other Details: gym Duration: 45-60 minutes/day Frequency: 3-4 times per week Huma/Jehovah'S Witness: None Special huma needs: No Seatbelt use: always Helmet use: Yes Helmet use: always Drive intox or ride w/intox wedding transportation driver: No Do you feel safe at home: Yes Do you feel safe in your relationship?: Yes Female Reproductive History Menstrual control method: pills History History 0 Para Hx # Term Pregnancies Multiple births Hx # Pregnancies Ectopic pregnancies AB induced Hx Number of Living Children AB spontaneous Exam <Thomas Rodríguez MD - Last Filed: 09/08/20 17:22> Const General: cooperative and no acute distress HENMT Mouth: moist mucous membranes Eyes Conjunctivae: normal conjunctivae Sclera: normal sclerae Pupils: PERRL EOM: EOM intact bilaterally Neck Neck: full ROM, trachea midline and supple Resp Auscultation: clear to auscultation bilaterally, no rales, no rhonchi and no wheezes Cardio Rate: regular rate and not tachycardic Rhythm: regular rhythm GI Palpation: soft, not firm, no guarding, no masses, not rigid and nontender Skin General skin exam: no rashes or lesions noted Neuro General: patient alert, patient awake, patient oriented x3 and tone normal Cranial Nerves: PERRL, accommodation normal, EOM intact bilaterally, no nystagmus, facial strength normal, tongue midline, hearing normal, able to rotate head bilaterally and able to elevate shoulders bilaterally Cognition: normal cognition Speech: speech normal Motor: other (Diminished strength in right hand 4/5) Sensory Exam: other (Diminished sensation to light touch right hand and left foot) Extrem General: no edema Right upper extremity: hand Details: vascular exam Details: radial pulse present Details: 2+ and other (Mild cyanosis, cool to the touch) Left lower extremity: foot (Diminished sensation to light touch) Details: normal capillary refill Psych Appearance: grossly normal Mental Status: mental status grossly normal Course <Thomas Rodríguez MD - Last Filed: 09/08/20 17:22> Vital Signs Vital signs: Vital Signs Temperature 36.6 C 08/23/20 13:59 Pulse 87 08/23/20 13:59 Respiratory Rate 16 08/23/20 13:59 Blood Pressure 127/83 08/23/20 13:59 Pulse Oximetry 100 08/23/20 13:59 Temperature 36.6 C 08/23/20 13:59 Temperature Source Skin 08/23/20 13:59 Pulse 87 08/23/20 13:59 Respiratory Rate 16 08/23/20 13:59 Respiratory Effort 08/23/20 14:03 Blood Pressure 127/83 08/23/20 13:59 Blood Pressure Position Sitting 08/23/20 13:59 Pulse Oximetry 100 08/23/20 13:59 Oxygen Delivery Method Room Air 08/23/20 13:59 Oxygen Flow Rate 0 08/23/20 13:59 Pain Level 4 08/23/20 13:59 Sign Out <Thomas Rodríguez MD - Last Filed: 09/08/20 17:22> Sign Out Data: Sign Out Comment: Please see my documentation regarding initial ED presentation course. Plan at signout is to follow-up on remaining labs including ESR, follow-up on CTA of the head, neck and thorax. Discussed case with vascular. Reassess patient for disposition. Last updated by Thomas Rodríguez MD at 08/23/20 16:33
[2020-08-23 15:04] LABS: C-Reactive Protein 0.23 mg/dL (0.0-0.3)
[2020-08-23 15:10] LABS: ALT 22 U/L (14-59); AST 13 U/L (15-37); Albumin 4.4 g/dL (3.4-5.0); Alkaline Phosphatase 58 U/L (46-116); Anion Gap 8.8 mmol/L (3-11); BUN 14 mg/dL (7-18); Bilirubin, Total 1.1 mg/dL (0.2-1.0); CO2 29.2 mmol/L (21.0-32.0); CREATININE 0.7 mg/dL (0.55-1.02); Calcium 9.5 mg/dL (8.5-10.1); Chloride 103 mmol/L (98-107); Glucose 100 mg/dL (74-106); Potassium 3.5 mmol/L (3.5-5.1); Sodium 141 mmol/L (136-145); Total Protein 8.3 g/dL (6.4-8.2); Troponin I < 0.05 ng/mL (<0.06)
[2020-08-23 15:15] LABS: Abs Immature Grans 0.02 10^3/uL (0.0-0.06); Absolute Basophil Count 0.06 10^3/uL (0.0-0.2); Absolute Eosinophil Count 0.04 10^3/uL (0.0-0.7); Absolute Lymphocyte Count 2.49 10^3/uL (1.2-3.4); Absolute Monocyte Count 0.55 10^3/uL (0.1-0.8); Absolute Neutrophil Count 3.27 10^3/uL (1.2-6.7); Basophils % 0.9; Eosinophils % 0.6; HCT 38.8 % (36.0-46.0); HGB 13.1 g/dL (11.2-15.7); Immature Grans % 0.3; Lymphocytes % 38.7; MCH 30.8 pg (27.0-33.0); MCHC 33.8 % (32.0-36.0); MCV 91.3 fL (80-95); MPV 11.1 fL (8.0-11.0); Monocytes % 8.6; Neutrophils % 50.9; Nucleated RBC 0 %; Platelet Count 230 10^3/uL (130-400); RBC 4.25 10^6/uL (3.93-5.22); RDW 11.9 % (11.7-14.6); RDW-SD 39.9 fL; WBC 6.43 10^3/uL (4.4-10.8)
[2020-08-23] MEDS: Omnipaque 350 MG/ML 100 ML BTL IJ (16:00)
--- NOTE | 2020-08-23 16:01 | DI.CT_ITS ---
EXAM: CT BRAIN NECK CTA CLINICAL HISTORY: headache, right hand paresthesia and cyanosis. TECHNIQUE: Imaging Protocol: Axial CT angiography was performed with multi-slice acquisition and mu lti-planar and/or 3D reconstructions. CONTRAST MATERIAL: Intravenous: Omnipaque 350 Contrast volume:structured data in ml COMPARISON: No exams were available for comparison FINDINGS: CTA Neck W: Aortic arch anatomy: Conventional. Anterior circulation: Both common carotid arteries ascend with normal luminal diameters. There is no significant stenosis at their origins. Both carotid bifurcations appear unremarkable without significant atherosclerotic narrowing. There is no significant stenosis in the proximal internal carotid arteries in the neck no r elsewhere in these vessels higher up in the neck and these vessels are patent within the skull base -carotid canals. Posterior circulation: Both vertebral arteries originate in conventional fashion off of the subclavian arteries and eggs exh ibit no significant stenosis at their origins. No significant stenosis in the subclavian arteries pr oximal to the vertebral artery takeoff points. Both vertebral arteries ascend with normal luminal di ameters of approximately equal caliber in the foramen transversarium. Both vertebral arteries contri bute to the formation of the basilar artery at the skull base. There is no evidence of vertebral art monroe thrombus nor dissection. CTA Brain W: Anterior circulation: Both internal carotid arteries are patent in the skull base and carotid canals as well as within the intracavernous aspects. Supraclinoid aspects are patent. Both middle cerebral is arteries are paten t no intraluminal thrombus and no aneurysms. Both A1 segments are patent as are the anterior cerebra l arteries and there is no evidence of aneurysm at the level of the anterior communicating artery. Posterior circulation: The basilar artery is formed at the skull base by both vertebral arteries and ascends in the midline with normal luminal diameter. Distally the basilar artery gives off patent superior cerebellar arter ies. Above this level terminates as bilateral posterior cerebral arteries which appear patent. Ther e is no aneurysm at tip of the basilar artery nor elsewhere in the [id number]. CT BRAIN: There are no skull fractures nor fluid the visualized paranasal sinuses. There is no evidence of intracranial hemorrhage, mass effect, or shift of midline structures. There are no extra-axial fluid collections. The ventricles are not enlarged or shifted and there is no blo od within the ventricular system nor within the basal cisterns. There are no ring enhancing lesions in the brain. There is no abnormal meningeal enhancement, focal or diffuse. IMPRESSION: 1. No significant stenosis, occlusion, or dissection in the arteries in the neck. 2. Patent intracranial arteries. No aneurysms. 3. No acute intracranial findings. No ring enhancing lesions in the brain nor abnormal meningeal e nhancement. RADIATION DOSE DELIVERED: 1,747.65mGy.cm Total DLP DATA REPOSITORY: All CT scans at this facility are submitted to the National Radiology Data Registry (NRDR) Dose Index Registry (DIR) with the [employer] ([employer]). RADIATION OPTIMIZATION: All CT scans at this facility use at least one of these dose optimization te chniques: automated exposure control; mA and/or kV adjustment per patient size (includes targeted exa ms where dose is matched to clinical indication); or iterative reconstruction.
--- NOTE | 2020-08-23 16:01 | DI.CT_ITS ---
EXAM: CT THORAX CTA CLINICAL HISTORY: headache, right hand paresthesia and cyanosis. TECHNIQUE: Imaging Protocol: CT angiography of the chest was performed using pulmonary embolus maicol col. Multi planar reconstructions were performed. CONTRAST MATERIAL: Intravenous: Omnipaque 350 Contrast volume: 100 cc COMPARISON: CT CT BRAIN NECK CTA from 08/23/2020 FINDINGS: CHEST: PULMONARY ARTERIES: There are no intraluminal filling defects to suggest acute pulmonary emboli. LUNGS: There are no infiltrates nor evidence of pulmonary infarction.. There are no pleural effusions . MEDIASTINUM: There is no hilar nor mediastinal adenopathy. Visualized thyroid unremarkable. CARDIAC: Heart size is normal. There is no pericardial effusion.Caliber of the thoracic aorta is wit hin normal limits. There is no evidence of shift of the interventricular septum. PARTIALLY VISUALIZED UPPERMOST ABDOMEN: Panic steatosis OSSEOUS: No significant osseous lesions.. IMPRESSION: 1. No evidence of acute pulmonary emboli. No evidence of pulmonary infarction.No pleural effusions. 2. No intrathoracic adenopathy evident. 3. Hepatic steatosis incidentally noted. RADIATION DOSE DELIVERED: LINK-TO-SR Total DLP DATA REPOSITORY: All CT scans at this facility are submitted to the National Radiology Data Registry (NRDR) Dose Index Registry (DIR) with the [employer] ([employer]). RADIATION OPTIMIZATION: All CT scans at this facility use at least one of these dose optimization te chniques: automated exposure control; mA and/or kV adjustment per patient size (includes targeted exa ms where dose is matched to clinical indication); or iterative reconstruction.
[2020-08-23] MEDS: Lactated Ringers 1,000 ML 1000 ML IV (16:06)
--- NOTE | 2020-08-23 16:38 | DI.VRAD_ITS ---
PROCEDURE INFORMATION: Exam: CT Angiography Chest With Contrast Exam date and time: 08/23/2020 3:53 PM Age: 19 years old Clinical indication: Other: Headache , RT hand paresthesia and cyanosis TECHNIQUE: Imaging protocol: Computed tomographic angiography of the chest with contrast. 3D rendering (Not supervised by radiologist): MIP and/or 3D reconstructed images were created by the technologist. Contrast material: OMNIPAQUE 350; Contrast volume: 85 ml; Contrast route: INTRAVENOUS (IV); COMPARISON: CR XR CHEST 2V PA LATERAL 10/02/2018 3:32 PM FINDINGS: Pulmonary arteries: Normal. No pulmonary emboli. Aorta: Unremarkable. No aortic aneurysm. No aortic dissection. Lungs: Unremarkable. No consolidation. No masses. Pleural spaces: Unremarkable. No pneumothorax. No pleural effusion. Heart: Unremarkable. No cardiomegaly. No pericardial effusion. Lymph nodes: Unremarkable. No enlarged lymph nodes. Liver: The liver appears diffusely decreased in density. Bones/joints: Unremarkable. No acute fracture. Soft tissues: Unremarkable. IMPRESSION: 1. No evidence of pulmonary embolism or other acute abnormality. 2. The liver appears decreased in density suggesting fatty liver disease. Dictated and Authenticated by: Boyd Galloway MD. Ordering:BENI Guzman MD
--- NOTE | 2020-08-23 17:16 | DI.VRAD_ITS ---
Addendum created by Nyla Thompson MD on 08/23/2020 6:12:08 PM EDT: THIS REPORT CONTAINS FINDINGS THAT MAY BE CRITICAL TO PATIENT CARE. The findings were verbally communicated via telephone conference with DONNA CANCINO at 6:12 PM EDT on 08/23/2020. The findings were acknowledged and understood. Initial report created on 08/23/2020 5:15:28 PM EDT: PROCEDURE INFORMATION: Exam: CT Angiography Head With Contrast, Arteries Exam date and time: 08/23/2020 4:01 PM Age: 19 years old Clinical indication: Other: Headache, RT hand paresthesia and cyanosis TECHNIQUE: Imaging protocol: Computed tomography angiography of the head with intravenous contrast. 3D rendering (Not supervised by radiologist): MIP and/or 3D reconstructed images were created by the technologist. Contrast material: OMNIPAQUE 350; Contrast volume: 85 ml; Contrast route: INTRAVENOUS (IV); COMPARISON: No relevant prior studies available. FINDINGS: ANTERIOR CIRCULATION: Right internal carotid artery: Unremarkable. Intracranial segment is patent with no significant stenosis. No aneurysm. Right middle cerebral artery: Unremarkable. No occlusion or significant stenosis. No aneurysm. Right anterior cerebral artery: Unremarkable. No occlusion or significant stenosis. No aneurysm. Left internal carotid artery: Unremarkable. Intracranial segment is patent with no significant stenosis. No aneurysm. Left middle cerebral artery: Unremarkable. No occlusion or significant stenosis. No aneurysm. Left anterior cerebral artery: Unremarkable. No occlusion or significant stenosis. No aneurysm. POSTERIOR CIRCULATION: Right vertebral artery: Unremarkable. No occlusion or significant stenosis. No aneurysm. Left vertebral artery: Unremarkable. No occlusion or significant stenosis. No aneurysm. Basilar artery: Unremarkable. No occlusion or significant stenosis. No aneurysm. Right posterior cerebral artery: Unremarkable. No occlusion or significant stenosis. No aneurysm. Left posterior cerebral artery: Questionable stenosis in the left P3 segment. The vessel is very small in caliber and difficult to visualize. Better consider MRA for further evaluation. Brain: No definite mass, mass effect, or midline shift. Cerebral ventricles: No ventriculomegaly. Bones/joints: Normal IMPRESSION: Questionable stenosis in the left P3 segment. The vessel is very small in caliber and difficult to visualize. Better consider MRA for further evaluation. PROCEDURE INFORMATION: Exam: CT Head Without Contrast Exam date and time: 08/23/2020 4:01 PM Age: 19 years old Clinical indication: Other: Headache, RT hand paresthesia and cyanosis TECHNIQUE: Imaging protocol: Computed tomography of the head without contrast. COMPARISON: No relevant prior studies available. FINDINGS: Brain: Normal. No hemorrhage. Unremarkable white matter. No mass effect. Cerebral ventricles: No ventriculomegaly. Bones/joints: Unremarkable. No acute fracture. Paranasal sinuses: Visualized sinuses are unremarkable. No fluid levels. Mastoid air cells: Visualized mastoid air cells are well aerated. Soft tissues: Unremarkable. IMPRESSION: No acute intracranial abnormality. PROCEDURE INFORMATION: Exam: CT Angiography Neck With Contrast Exam date and time: 08/23/2020 4:01 PM Age: 19 years old Clinical indication: Other: Headache, RT hand paresthesia and cyanosis TECHNIQUE: Imaging protocol: Computed tomography angiography of the neck with intravenous contrast. 3D rendering (Not supervised by radiologist): MIP and/or 3D reconstructed images were created by the technologist. Contrast material: OMNIPAQUE 350; Contrast volume: 85 ml; Contrast route: INTRAVENOUS (IV); COMPARISON: No relevant prior studies available. FINDINGS: Right common carotid artery: No stenosis. No dissection or occlusion. Right internal carotid artery: No stenosis of the extracranial segment. No dissection or occlusion. Right external carotid artery: No occlusion or stenosis of the origin. Right vertebral artery: No stenosis. No dissection or occlusion. Left common carotid artery: No stenosis. No dissection or occlusion. Left internal carotid artery: No stenosis of the extracranial segment. No dissection or occlusion. Left external carotid artery: No occlusion or stenosis of the origin. Left vertebral artery: No stenosis. No dissection or occlusion. Bones/joints: No acute fracture. Soft tissues: Normal. No significant soft tissue swelling. IMPRESSION: No stenosis or occlusion. REFERENCES: NASCET CRITERIA. The degree of internal carotid artery stenosis is based on NASCET criteria. Normal is no stenosis. Mild is less than 50% stenosis. Moderate is 50-69% stenosis. Severe is 70% to 99% stenosis. Total occlusion is no detectable patent lumen. Dictated and Authenticated by: Nyla Thompson MD. Ordering:BENI Guzman MD
[2020-08-23 21:26] LABS: ESR 9 mm/hr (<or=20)
[2020-08-23 21:42] LABS: Source Nasal/Nares
--- NOTE | 2020-08-23 22:25 | W.PM.HP.N ---
Date of service: 08/23/20 Time of Service: 22:25 Assessment and Plan Assessment and plan (1) Migraine: Status: Chronic (2) Paresthesia: Status: Acute Assessment and plan: Admit to hospital for observation. Will get neurology consultation and schedule echocardiogram. The patient is stable at this time. (3) Cyanosis of skin: Status: Acute (4) Migraine headache with aura: Status: Chronic History of Present Illness History of Present Illness Chief Complaint: Headache, paresthesias And skin discoloration. Narrative: This 19-year-old female came to emergency department today after having a headache for the last 4 days. Initially was in her right alevism area but today it has been varying from side to side. Today she also noted some green lines in her vision with some right blurriness of her vision and what appeared to be TV static in both eyes. She also noted any discoloration of her right hand. At the same time her left foot felt tingly no but there was no color change. While here in the emergency department she noted that her headache moved to the left side and she was having numbness in her left hand and her right foot. She had extensive evaluation in the department along with consultations with [facility] vascular surgery and neurosurgery and neurology. Her blood tests have been unremarkable. She had a CTA of her head and chest. She has not been around anyone's been sick and she has had both her coronavirus vaccines and she has not been traveling. She lives by herself. She does not use tobacco. 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 She uses marijuana occasionally. She has not used other drugs. Review of Systems All systems reviewed & are unremarkable except as noted in HPI and below Constitutional Comments: She has had no fever chills or vomiting. She has had some achiness in her neck for 2 days. Initially she noted some difficulty swallowing today but tonight is fine. She is night on her menstrual period, 4 to 5 days but she often has irregular periods. She said no difficulty with her bowels or bladder. She does feel weak and has some nausea today. She gets an aura before her headaches but this was different with this headache as the aura came today and the headache still notes of days. [facility] Medical History Chronic rhinitis Generalized anxiety disorder Irritable bowel Major depressive disorder Migraine headache with aura Oral contraceptive pill surveillance Syncope Urticaria Surgical History S/P tonsillectomy (04/26/19) Tonsillectomy and frenulectomy Family History Mother No problems noted. Father No problems noted. Sister No problems noted. Maternal Grandfather Heart disease Essential hypertension Myocardial infarction Maternal Grandmother Depression Paternal Grandfather No problems noted. Paternal Grandmother No problems noted. Social History Smoking/Tobacco Use Status: Never Smoking risk assessment performed?: Yes Alcohol Intake: never Drug use: Never Substance use type: does not use Caregiver/Support person: No Household members: friend(s) Housing: apartment Communication Needs: Corrective Lenses Do you need help understanding health information?: Never Pets and animals: Yes Pets and animals: cat(s) and other Details: jennifer Sexually active: Yes Do you think of yourself as: straight/heterosexual Current gender identity: female What is your relationship status?: never How often do you talk on the phone with friends or family?: three or more times per week How often do you get together with friends or relatives?: three or more times per week How often do you attend faith or oriental orthodox services?: decline to answer Do you belong to any clubs or organized social groups?: no Panel score (0-1 are the most socially isolated patients): 1 What type of physical activity do you participate in: other Details: gym Duration: 45-60 minutes/day Frequency: 3-4 times per week Huma/Restorationism: None Special huma needs: No Seatbelt use: always Helmet use: Yes Helmet use: always Drive intox or ride w/intox driver lifter of sanitation truck: No Do you feel safe at home: Yes Do you feel safe in your relationship?: Yes Female Reproductive History Menstrual control method: pills History History 0 Para Hx # Term Pregnancies Multiple births Hx # Pregnancies Ectopic pregnancies AB induced Hx Number of Living Children AB spontaneous Meds Home Medications and Allergies Allergies Allergy/AdvReac Type Severity Reaction Status Date / Time seasonal allergies Allergy Congestion Uncoded 05/12/20 14:43 Home Medications Medication Instructions Recorded Confirmed Type cyanocobalamin (vitamin B-12) 500 500 mcg PO DAILY 05/12/20 08/23/20 History mcg tablet sumatriptan succinate 50 mg tablet 50 mg PO ONCE PRN #90 tab 05/12/20 08/23/20 Rx propranolol 20 mg tablet 20 mg PO BID #180 tab-cap 05/17/20 08/23/20 Rx Exam Const General: cooperative, healthy appearing, comfortable and no acute distress Nutritional Appearance: average body habitus and well nourished Orientation: alert and awake [facility] Head: normal to inspection Ears: hearing grossly normal bilaterally General nose exam: nares normal Face and sinus: normal facial exam Mouth: oral mucosae normal and tongue normal Throat: uvula midline and tonsils absent Eyes General: appearance normal, both eyes and all related structures Alignment and Position: alignment normal Eyelids: eyelids normal Sclera: sclerae normal Pupils: PERRL EOM: EOM intact bilaterally Neck Neck: normal visual inspection and no lymphadenopathy Resp Effort & Inspection: normal respiratory effort Auscultation: clear to auscultation bilaterally Cardio Jugular venous pressure: no JVD Rate: regular rate Rhythm: regular rhythm Heart Sounds: S1 normal and S2 normal Pulses: radial pulses present and dorsalis pedis present GI Palpation: soft and no hepatosplenomegaly Skin General skin exam: no rashes or lesions noted Neuro General: patient alert Motor: muscle tone normal throughout, strength 5/5 throughout and no movement abnormalities noted Sensory Exam: no sensory deficits noted Coordination: [id number] test normal and [id number] test normal Extrem General: normal to inspection and capillary refill normal Psych Appearance: grossly normal Mental Status: mental status grossly normal Speech and Movement: speech and movement normal Judgment: judgment good Results Labs Result diagrams: 08/23/20 14:00 08/23/20 14:00 Labs: Laboratory Results - last 24 hr 08/23/20 08/23/20 08/23/20 14:00 14:00 14:00 WBC 6.43 RBC 4.25 Hgb 13.1 Hct 38.8 MCV 91.3 MCH 30.8 MCHC 33.8 RDW 11.9 Plt Count 230 MPV 11.1 H Immature Gran % 0.3 Neutrophils % 50.9 Lymphocytes % 38.7 Monocytes % 8.6 Eosinophils % 0.6 Basophils % 0.9 Nucleated RBC % 0 Absolute Neutrophils 3.27 Absolute Lymphocytes 2.49 Absolute Monocytes 0.55 Absolute Eosinophils 0.04 Absolute Basophils 0.06 ESR Sodium 141 Potassium 3.5 Chloride 103 Carbon Dioxide 29.2 Anion Gap 8.8 BUN 14 Creatinine 0.7 Estimated GFR/1.73 m2 >= 60.00 Glucose 100 Calcium 9.5 Total Bilirubin 1.1 H AST 13 L ALT 22 Alkaline Phosphatase 58 Troponin I < 0.05 C-Reactive Protein 0.23 Total Protein 8.3 H Albumin 4.4 COVID-19 Source 08/23/20 08/23/20 14:00 21:30 WBC RBC Hgb Hct MCV MCH MCHC RDW Plt Count MPV Immature Gran % Neutrophils % Lymphocytes % Monocytes % Eosinophils % Basophils % Nucleated RBC % Absolute Neutrophils Absolute Lymphocytes Absolute Monocytes Absolute Eosinophils Absolute Basophils ESR 9 Sodium Potassium Chloride Carbon Dioxide Anion Gap BUN Creatinine Estimated GFR/1.73 m2 Glucose Calcium Total Bilirubin AST ALT Alkaline Phosphatase Troponin I C-Reactive Protein Total Protein Albumin COVID-19 Source Nasal/nares Last Vital Signs Temp 36.6 C 08/23/20 13:59 Pulse 79 08/23/20 21:31 Resp 15 08/23/20 21:40 BP 112/91 H 08/23/20 21:31 Pulse Ox 100 08/23/20 21:16 COVID-19 Screening Have you, or household traveled for leisure in last 14 days?: No Had IN PERSON contact w/suspected or confirmed C-19 person: No
[2020-08-23 22:32] LABS: COVID-19 PCR Negative (Negative)
--- NOTE | 2020-08-24 | DI.US_ITS ---
APPROVED REPORT EXAM: Comprehensive 2D, Doppler, and color-flow Echocardiogram Patient Location: In-Patient Room/Bed: [facility] [place] : Milvia Cabello RDCS (AE) Indications: Atypical migraine Other Information Study Quality: Adequate Conclusion Left Ventricle : The left ventricle is normal size. The left ventricular systolic function is normal. The left ventricular ejection fraction is within the normal range. There is normal left ventricular wall thickness. There is normal LV segmental wall motion. The left ventricular diastolic function is normal. LVEF is 60%. Right Ventricle : The right ventricle is normal size. The right ventricular systolic function is norm al. Atria : The left atrium size is normal. The right atrium size is normal. Valves: There are no hemodynamically significant valvular lesions. Great Vessels : The aortic root is normal in size. Ascending aorta is not well visualized. Descending aorta is dilated. IVC is normal in size and collapses >50% with inspiration. Compared to echocardiogram from 11/18/2018, there is no significant change. Wall motion Left Ventricle The left ventricle is normal size. The left ventricular systolic function is normal. The left ventric ular ejection fraction is within the normal range. There is normal left ventricular wall thickness. T here is normal LV segmental wall motion. The left ventricular diastolic function is normal. There is no ventricular septal defect visualized. LVEF is 60%. Right Ventricle The right ventricle is normal size. The right ventricular systolic function is normal. Atria The left atrium size is normal. The right atrium size is normal. The interatrial septum is intact wit h no evidence for an atrial septal defect. Aortic Valve The aortic valve is normal in structure. Aortic valve is trileaflet. There is no aortic valvular sten osis. No aortic regurgitation is present. Mitral Valve The mitral valve is normal in structure. No evidence of mitral valve stenosis. Trace mitral regurgita tion. Tricuspid Valve The tricuspid valve is normal in structure. There is no tricuspid valve stenosis. Trace tricuspid reg urgitation. Pulmonic Valve Pulmonic valve is not well visualized. There is no pulmonic valvular stenosis. There is no pulmonic v alvular regurgitation. Great Vessels The aortic root is normal in size. Ascending aorta is not well visualized. Descending aorta is dilate d. IVC is normal in size and collapses >50% with inspiration. 2D Dimensions IVSD d PLAX 0.80 cm F: 0.6-1.0 LV Vol A2C d MOD 102.2 mL LVPW d PLAX 0.80 cm F: 0.6 - 1.0 LV Vol A4C d MOD 97.5 mL LVID d PLAX 4.82 cm F: 3.8 - 5.2 LA vol/ BSA A2C s A-L 20.8 mL/m2 LVDs 3.05 cm F: 2.2 - 3.5 LA vol/ BSA A4C s A-L 12.0 mL/m2 Ao Root d 2.48 cm F: 2.7 - 3.3 LA Vol/ BSA Biplane s A-L 16.7 mL/m2 RA Area A4C 8.34 cm2 LA Area A4C s MOD 9.82 cm2 RA Vol/ BSA A4C s A-L 8.9 mL/m2 LA Area A2C s MOD 13.68 cm2 LV EF Teichholz 65.4 % LV EF A4C MOD 60.6 % LVEF (Galaviz's) 60.92 % F: 54 - 74 LV EF A2C MOD 61.0 % LV Volume 79.95 mL F: 46 - 106 LV EF Biplane MOD 60.9 % LV Volume Index 45.94 mL/m2 F: 29 - 61 SV 61.94 mL LV Vol Biplane MOD 101.7 mL SV Index 35.48 mL/m2 FS 35.90 % M-Mode TAPSE 2.55 cm (M/F) >1.7 LV Diastology MV E' medial 0.178 (>0.07 m/s) E/A Ratio 1.9 LV E/e MED 4.70 (<14) MV E Vmax 0.85 (0.4-1.3 m/s) MV E' lateral 0.211 (>0.1 m/s) MV A Vmax 0.45 (0.4-1.3 m/s) LV E/e LAT 4.00 (<14) MV E/A Ratio 1.81 MV E/E' medial 4.75 MV E/E' lateral 4.01 Aortic Valve LVOT Area 2.88 cm2 AoV Area Vmax 2.32 cm2 LVOT Vmax 0.99 m/s AoV Area/ BSA (Vmax) 1.33 cm2/m2 LVOT Mean Margarito. 0.66 m/s AUDREY Mean Margarito. 2.16 cm2 LVOT Peak Grad 3.9 mmHg AUDREY Mean Margarito. Index 1.23 cm2/m2 LVOT Mean Grad 2.0 mmHg LVOT VTI 0.209 m LVOT Diam s 1.90 cm AoV Vmax 1.23 m/s Velocity Ratio 0.80 AoV Mean Margarito. 0.88 m/s AoV Peak Grad 6.0 mmHg LVOT SV 60.17 mL AoV Mean Grad 3.4 mmHg AoV VTI 0.276 m AoV Area VTI 2.18 cm2 AoV Area/ BSA (VTI) 1.25 cm/m2 Mitral Valve MV DT 221 (160-240 msec) MV PHT 64 msec MV Area PHT 3.43 cm2 Pulmonary Valve PV Vmax 0.85 (0.5-1.5 m/s) RVOT Peak Gr. 1.84 mmHg PV Peak Grad 2.9 mmHg RVOT Mean Gr. 1.15 mmHg PV Mean Grad 2.0 mmHg RVOT VTI 0.142 m PV VTI 0.185 m RVOT Vmax 0.68 m/s Tricuspid Valve TR Peak Grad 10.4 mmHg TR Vmax 1.61 m/s RA Pressure 3.00 mmHg RVSP (TR) 13.4 mmHg
[2020-08-24 03:10] VITALS: BP 104/63; PULSE 78; RESP 20; TEMP 36.4; O2SAT 98
[2020-08-24 07:17] VITALS: BP 106/63; PULSE 67; RESP 19; TEMP 36.7; O2SAT 100
--- NOTE | 2020-08-24 08:21 | PDOC.CMIN ---
- If Service Date Differs Date of service: 08/24/20 Time of Service: 08:21 Care Management Initial Assess REASON FOR HOSPITALIZATION:: Paresthesia PAST MEDICAL HISTORY/PAST SURGICAL HISTORY:: Medical History . Chronic rhinitis. Generalized anxiety disorder. Irritable bowel. Major depressive disorder. Migraine headache with aura. Oral contraceptive pill surveillance. Syncope. Urticaria. Surgical History . S/P tonsillectomy (04/26/19). Tonsillectomy and frenulectomy PREVIOUS FUNCTIONAL STATUS/SOCIAL/FAMILY SUPPORTS:: Chapis lives alone in [place]. She has one younger sister. Her parents also live in [place] and are supportive. 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 She is completely independent. CURRENT FUNCTIONAL STATUS:: Chapis was sititng up in bed when CM met with her. She engaged readily with CM and was pleasant and interactive. Chapis shared that she is feeling much better and hopes to be aable to go home today. ADVANCE DIRECTIVES:: None on file Has patient been provided with info about the portal/API?: Yes Did the patient sign up for the portal?: Yes (previously) CODE STATUS:: Full Code INSURANCE COVERAGE / FINANCIAL ISSUES:: BC BS. Financial assist 85 CURRENT HOME/COMMUNITY SERVICES/EQUIPMENT:: NONE PRIMARY CARE PHYSICIAN:: Ladonna Terry POTENTIAL DISCHARGE NEEDS:: Follow up with community providers PATIENT/FAMILY EDUCATION NEEDS:: Discharge plan, follow up, limitations, Ask Me Three TRANSPORTATION:: via private vehicle with family PLAN:: Chapis will likely be discharged home with no new dervices. She will follow up with her community providers and pakn of care and transport with family.
[2020-08-24 09:31] LABS: Vitamin B12 410 pg/mL (193-986)
[2020-08-24] MEDS: Verapamil 80 MG TAB 40 MG PO (09:44)
--- NOTE | 2020-08-24 11:00 | DI.MRI_ITS ---
EXAM: MR BRAIN WO CLINICAL HISTORY: atypical migraine TECHNIQUE: Multiplanar multisequence MRI of the brain was performed. COMPARISON: Prior CT study 08/23/2020 was reviewed FINDINGS: CEREBRAL PARENCHYMA: No evidence of intracranial hemorrhage, mass effect nor shift of midline structu re. No extraaxial fluid collections. Ventricles are not enlarged nor shifted. There is no significant focal signal abnormality in the cerebellar hemispheres nor within the arsen, m idbrain, and thalami. There is no abnormal signal abnormality in the periventricular white matter. No evidence of demyelin ating plaques. There is no abnormal focal signal evident on diffusion imaging. There is no evidence of cerebellar tonsillar ectopia. PITUITARY GLAND: No mass nor parasellar abnormality. No obvious abnormality in the cavernous sinuses. FLOW VOIDS: The expected flow void are noted. No evidence of obvious aneurysm nor obvious vascular ma lformation. PARANASAL SINUSES: Mild mucosal thigh skin is seen in the floor of the left maxillary sinus. Remaind er of the paranasal sinuses are clear as are the mastoid air cells. ORBITS: No obvious abnormal findings. IMPRESSION: 1. No significant intracranial findings on this noninfused MRI scan of the brain. DATA REPOSITORY:
[2020-08-24 11:15] VITALS: BP 115/72; PULSE 82; RESP 19; TEMP 36.7; O2SAT 99
[2020-08-24] MEDS: Normal Saline Flush 10 ML SYR IVP ×2 (11:24→12:33)
[2020-08-24] MEDS: Ketorolac 30 MG/ML VIAL IVP (11:24)
[2020-08-24] MEDS: Prochlorperazine 10 MG/2 ML VIAL IVP (12:33)
--- NOTE | 2020-08-24 14:20 | PGE_ITS ---
Date of Service Date of service: 08/24/20 Time of Service: 14:20 Assessment and Plan Assessment and plan (1) Migraine: Status: Acute Assessment and plan: Likely complication of [employer]'s wart use. Await neuro consult, but this is the likely culprit. We are also ruling out Lyme disease, and there is a possibility of GBS. prn toradol/compazine. Patient advised that these are side effects of Wayne's wart and she should discontinue use. (2) Paresthesia: Status: Acute Assessment and plan: Likely related to above; however, also has b12 deficiency. CRPS? Await neuro consult. (3) Cyanosis of skin: Status: Acute Assessment and plan: Could also be related to Wayne's wart. Raynaud's vs CRPS. (4) Left leg weakness: Status: Acute Assessment and plan: Likely related to migraine. Obtain PT c/s to ensure safety of ambulation. Subjective Subjective Interval history since last seen: Ms Hendrickson states that her headache alternates from one yarsani to the other. When her headache is on the right, she has right hand and left foot paresthesias. This alternates with the side of the headache - when it moves to the left yarsani, it's left hand and right foot paresthesias. Today the patient also noted LLE weakness and that she is limping. She denies lower back pain. She does endorse mild right sided neck pain (it's sore) and some muscular pain on the right side of her back. Denies injury. She endorsed loud noises triggering her right upper eyelid to spasm while she was in the MRI. She states that she has not taken any oral contraceptives for one year. She states that until 6 months ago, she would only get headaches with PMS. Now, they are getting worse and worse. Her periods have become irregular - but she states they have always been irreg ular, and her [employer] provider was not concerned. She states there is no way that she is . Also describes word finding difficulty yesterday, forgetfulness in general (does not remember what the series was about that she just finished watching). Describes occasional feeling like her body is not hers. Does admit to taking a vitamin with Shana's wart x 1 month. Exam Narrative Exam Narrative: General: Pleasant female, sitting up in bed, A&Ox3 HEENT: EOMI, MMM, does have a very slight left facial droop though this appears to be chronic Heart: RRR, no m/r/g Lungs: CTAB Abdomen: soft, nontender, nondistended Extremities: no e/c/c BLE's, 4+/5 LLE strength, distally weaker than proximally; 5/5 strength elsewhere. No mottling of RUE today. Objective Last Vital Signs Temp 36.7 C 08/24/20 11:15 Pulse 82 08/24/20 11:15 Resp 19 08/24/20 11:15 BP 115/72 08/24/20 11:15 Pulse Ox 99 08/24/20 11:15 Laboratory Results - last 24 hr 08/23/20 08/23/20 08/23/20 14:00 14:00 14:00 WBC 6.43 RBC 4.25 Hgb 13.1 Hct 38.8 MCV 91.3 MCH 30.8 MCHC 33.8 RDW 11.9 Plt Count 230 MPV 11.1 H Immature Gran % 0.3 Neutrophils % 50.9 Lymphocytes % 38.7 Monocytes % 8.6 Eosinophils % 0.6 Basophils % 0.9 Nucleated RBC % 0 Absolute Neutrophils 3.27 Absolute Lymphocytes 2.49 Absolute Monocytes 0.55 Absolute Eosinophils 0.04 Absolute Basophils 0.06 ESR Sodium 141 Potassium 3.5 Chloride 103 Carbon Dioxide 29.2 Anion Gap 8.8 BUN 14 Creatinine 0.7 Estimated GFR/1.73 m2 >= 60.00 Glucose 100 Calcium 9.5 Total Bilirubin 1.1 H AST 13 L ALT 22 Alkaline Phosphatase 58 Troponin I < 0.05 C-Reactive Protein 0.23 Total Protein 8.3 H Albumin 4.4 Vitamin B12 COVID-19 Source SARS-CoV-2 (PCR) 08/23/20 08/23/20 08/24/20 14:00 21:30 08:43 WBC RBC Hgb Hct MCV MCH MCHC RDW Plt Count MPV Immature Gran % Neutrophils % Lymphocytes % Monocytes % Eosinophils % Basophils % Nucleated RBC % Absolute Neutrophils Absolute Lymphocytes Absolute Monocytes Absolute Eosinophils Absolute Basophils ESR 9 Sodium Potassium Chloride Carbon Dioxide Anion Gap BUN Creatinine Estimated GFR/1.73 m2 Glucose Calcium Total Bilirubin AST ALT Alkaline Phosphatase Troponin I C-Reactive Protein Total Protein Albumin Vitamin B12 410 COVID-19 Source Nasal/nares SARS-CoV-2 (PCR) Negative
[2020-08-24 15:00] VITALS: PULSE 99
[2020-08-24 16:23] VITALS: BP 104/53; PULSE 83; RESP 17; TEMP 37.2; O2SAT 99
[2020-08-24 16:27] LABS: Rheumatoid Factor <8.6 IU/mL (<12.0)
--- NOTE | 2020-08-24 17:13 | W.PM.DS.N ---
Date of service: 08/24/20 Time of Service: 17:13 DS: Diagnosis Discharge Diagnosis (1) Migraine: Status: Acute (2) Medication side effect: Status: Acute (3) Paresthesia: Status: Acute (4) Cyanosis of skin: Status: Acute (5) Left leg weakness: Status: Acute (6) Autonomic dysfunction: Status: Chronic (7) COVID-19 ruled out by laboratory testing: Status: Ruled-out Discharge Plan Disposition Patient Disposition: HOME Condition: Stable Discharge Details Reason For Visit: PARASTHESIAS Admit Date/Time: 08/23/20 22:12 Admit Provider: Dhruv Vieira Attending Provider: Dhruv Vieira Primary Care Provider: [facility] Hospital Course Hospital Course: Ms Hendrickson is a 19 year old female with PMHx of anxiety, depression, and migraines headaches who was a patient on the hospitalist service from 08/23/20 until 08/24/20 for a migraine accompanied by intermittent numbness, paresthesias, and weakness in setting of using Wayne's wart supplement. Additionally, the patient had cyanosis of distal part of RUE through her forearm, which may have been related to Reynaud's or alterantive seratonergic effect of Shana's wort/autonomic dysfunction. She had a negative MRI of her brain. She was evaluated by neurology, and Dr Frost agrees that the features of this migraine are due to Wayne's wort. Verapamil 40 mg daily was initiated for both migraine prophylaxis and possible Raynaud's. She will need to follow up with neurology in 6 weeks. The patient has borderline B12 deficiency, which we are advising to supplement. Finally, for her anxiet/depression, Dr Frost recommended a trial of N-acetyl cysteine 500 mg BID. The patient is medically stable for discharge and is agreeable to discharge home today. She should follow up with her PCP in 1-2 weeks. Home Meds and New Rx's Prescriptions: New verapamil 80 mg Tablet 40 mg PO DAILY Qty: 30 RF: 0 acetylcysteine 500 mg capsule 500 mg PO BID Qty: 60 RF: 0 Continued cyanocobalamin (vitamin B-12) [Vitamin B-12] 500 mcg tablet 500 mcg PO DAILY RF: 0 sumatriptan succinate [Imitrex] 50 mg tablet 50 mg PO ONCE PRN (Reason: migraine headache) Qty: 90 RF: 0 Discontinued propranolol 20 mg tablet 20 mg PO BID Qty: 180 RF: 4 Discharge Instructions Instructions: Verapamil (By mouth), Migraine Headache (ED) Additional Instructions: Stop taking [employer]'s wort. Return to the hospital with any fever, bleeding, chest pain, shortness of breath, worsening migraines. Follow up with your PCP in 1-[address] Frost in 6 weeks. Stand Alone Forms: Nursing Discharge Form Referrals: Ladonna Terry NP [Primary Care Provider] - (Please call to make a follow up appointment for 1-2 weeks ) Viv Frost MD [ [facility] STAFF PHYSICIAN] - (Please call to make a follow up appointment for 6 weeks.) Activity:: Activity as Tolerated Equipment/Supplies:: No Equipment Needed Diet:: As Tolerated Discharge Orders Discharge Orders: Discharge Order (Routine); Ordered 08/24/20 Ordered By: Maria G Arreaga DS: Summary Time Spent with Patient providing and/or coordinating discharge services: Greater than 30 minutes Status at Discharge Functional status at discharge: independent ambulation Overall status at discharge: patient is progressing back to baseline Mental Status: mental status grossly normal Speech and Movement: speech and movement normal Mood: anxious mood Affect: normal affect Exam Narrative Exam Narrative: General: Pleasant female, sitting up in bed, A&Ox3 HEENT: EOMI, MMM, does have a very slight left facial droop though this appears to be chronic Heart: RRR, no m/r/g Lungs: CTAB Abdomen: soft, nontender, nondistended Extremities: no e/c/c BLE's, 4+/5 LLE strength, distally weaker than proximally; 5/5 strength elsewhere. No mottling of RUE today. Psych Mental Status: mental status grossly normal Speech and Movement: speech and movement normal Mood: anxious mood Affect: normal affect DS: Data Vitals/I&O Vitals and I&O: Vital Signs Temperature 37.2 C 08/24/20 16:23 Temperature Source Temporal Artery Scan 08/24/20 16:23 Pulse 83 08/24/20 16:23 Pulse Rhythm Regular 08/24/20 15:28 Pulse 92 H 08/23/20 21:40 Respiratory Rate 17 08/24/20 16:23 Respiratory Effort Non-Labored 08/24/20 15:28 Respiratory Depth Normal 08/24/20 15:28 Respiratory Pattern Normal 08/24/20 15:28 Blood Pressure 104/53 L 08/24/20 16:23 Blood Pressure Mean 95 08/23/20 21:31 Blood Pressure Position Sitting 08/23/20 13:59 Pulse Oximetry 99 08/24/20 16:23 Oxygen Delivery Method Room Air 08/24/20 16:23 Oxygen Flow Rate 0 08/24/20 16:23 Pain Level 0 08/24/20 16:23 Intake & Output 08/23/20 08/24/20 08/24/20 23:59 11:59 23:59 Intake Total 1200 / 1200 2270 / 2270 Output Total 800 / 1100 300 / 1100 Balance 1200 / 1200 1470 / 1170 -300 / 1170 Weight 67.8 kg Intake: IV 1000 / 1000 1000 / 1000 Oral 200 / 200 1270 / 1270 Output: Urine 800 / 1100 300 / 1100 Other: Urine Color Light Yesica Light Yesica Urine Appearance Clear Clear Clear Urine Odor Normal None Comment Patient voided in the toliet. Voiding Methods Toilet Toilet Data Completed and Pending Completed studies during hospitalization [Text1]: CTA head/neck: 1. No significant stenosis, occlusion, or dissection in the arteries in the neck. 2. Patent intracranial arteries. No aneurysms. 3. No acute intracranial findings. No ring enhancing lesions in the brain nor abnormal meningeal enhancement. CT thoracic aorta: 1. No evidence of acute pulmonary emboli. No evidence of pulmonary infarction.No pleural effusions. 2. No intrathoracic adenopathy evident. 3. Hepatic steatosis incidentally noted. Echo; Left Ventricle : The left ventricle is normal size. The left ventricular systolic function is normal. The left ventricular ejection fraction is within the normal range. There is normal left ventricular wall thickness. There is normal LV segmental wall motion. The left ventricular diastolic function is normal. LVEF is 60%. Right Ventricle : The right ventricle is normal size. The right ventricular systolic function is normal. Atria : The left atrium size is normal. The right atrium size is normal. Valves: There are no hemodynamically significant valvular lesions. Great Vessels : The aortic root is normal in size. Ascending aorta is not well visualized. Descending aorta is dilated. IVC is normal in size and collapses >50% with inspiration. Compared to echocardiogram from 11/18/2018, there is no significant change. MRI brain: 1. No significant intracranial findings on this noninfused MRI scan of the brain. Labs on day of discharge: Labs from last 24 hours 08/24/20 08/24/20 08/24/20 08:43 08:43 08:43 ESR Vitamin B12 410 Rheumatoid Factor <8.6 HAVEN Titer Pending HAVEN Titer 2 Pending HAVEN Titer 3 Pending HAVEN Interpretation Pending A.phagocytophil DNA PCR Pending B. divergens/MO-1 PCR Pending Babesia duncani (PCR) Pending Babesia microti DNA PCR Pending Borrelia (PCR) Pending Lyme Disease Antibody Pending COVID-19 Source SARS-CoV-2 (PCR) E.chaffeensis DNA (PCR) Pending E.ewingii/canis DNA PCR Pending E. muris-like DNA (PCR) Pending 08/23/20 08/23/20 21:30 14:00 ESR 9 Vitamin B12 Rheumatoid Factor HAVEN Titer HAVEN Titer 2 HAVEN Titer 3 HAVEN Interpretation A.phagocytophil DNA PCR B. divergens/MO-1 PCR Babesia duncani (PCR) Babesia microti DNA PCR Borrelia (PCR) Lyme Disease Antibody COVID-19 Source Nasal/nares SARS-CoV-2 (PCR) Negative E.chaffeensis DNA (PCR) E.ewingii/canis DNA PCR E. muris-like DNA (PCR) [facility] Medical History Chronic rhinitis Generalized anxiety disorder Irritable bowel Major depressive disorder Migraine headache with aura Oral contraceptive pill surveillance Syncope Urticaria Surgical History S/P tonsillectomy (04/26/19) Tonsillectomy and frenulectomy Family History Mother No problems noted. Father No problems noted. Sister No problems noted. Maternal Grandfather Heart disease Essential hypertension Myocardial infarction Maternal Grandmother Depression Paternal Grandfather No problems noted. Paternal Grandmother No problems noted. Social History Smoking/Tobacco Use Status: Never Smoking risk assessment performed?: Yes Alcohol Intake: never Drug use: Never Substance use type: does not use Caregiver/Support person: No Household members: friend(s) Housing: apartment Communication Needs: Corrective Lenses Do you need help understanding health information?: Never Pets and animals: Yes Pets and animals: cat(s) and other Details: jennifer Sexually active: Yes Do you think of yourself as: straight/heterosexual Current gender identity: female What is your relationship status?: never How often do you talk on the phone with friends or family?: three or more times per week How often do you get together with friends or relatives?: three or more times per week How often do you attend jain or muslim services?: decline to answer Do you belong to any clubs or organized social groups?: no Panel score (0-1 are the most socially isolated patients): 1 What type of physical activity do you participate in: other Details: gym Duration: 45-60 minutes/day Frequency: 3-4 times per week Huma/Pentecostalism: None Special huma needs: No Seatbelt use: always Helmet use: Yes Helmet use: always Drive intox or ride w/intox route salesman and driver: No Do you feel safe at home: Yes Do you feel safe in your relationship?: Yes Female Reproductive History Menstrual control method: pills History History 0 Para Hx # Term Pregnancies Multiple births Hx # Pregnancies Ectopic pregnancies AB induced Hx Number of Living Children AB spontaneous
--- NOTE | 2020-08-24 17:15 | NCONE_ITS ---
Date of service: 08/24/20 Time of Service: 17:15 Assessment and Plan Assessment and plan (1) Migraine headache with aura: Status: Chronic (2) Cyanosis of skin: Status: Acute (3) Paresthesia: Status: Acute (4) Major depressive disorder: Status: Chronic (5) Anxiety: Status: Chronic Assessment and plan: Ms. Hendrickson is a 19 year-old, right-handed woman with the following: #1. Headache and paraesthesias. Her neurological exam this afternoon was notable for only non-specific sensory changes with functional overlay. She has normal neuroimaging. She had prolonged headache c/w status migrainosis. The paraesthesias and subjective weakness seem to be part of the migraine. I discussed this with her. Her symptoms are not consistent with vasculitis or autonomic headaches. She has had increased headaches as late. Not really clear why. It could be hormonally related or due to worsening mood disorder. Given findings below in #2, she was started on verpamil 40mg this am which is also an excellent migraine preventative. She has tolerated this well. We discussed continuing this once daily (very low dose as she has a high rate of med ADRs) for headache prevention. She will continue Excedrin prn for rescue therapy, though admittedly, this isn't that effective for her however I am hesitant to make too many changes at once. #2. Cyanotic right hand. This would not be related to migraine. Her history is not consistent with CRPS. I am not sure of the etiology. Shana's Wart? Raynauds? I defer to primary team, though we did discuss use of Verapamil for both migraine and ?Raynauds. Chapis notes that her right hand returned to normal after her dose of Verapamil. #3. Depression and anxiety. This has been worsening over the last 1 year. Multiple medication trials. Most recently she started Shana's Wart. I agree with its cessation. We discussed she could consider a trial of N- acetylcysteine. #4. Irregular menses. We discussed follow-up with PCP to address irregular menses as unclear if hormonal changes are contributing to headaches. She is not interested in IUD as she notes several family members passed out with an IUD. She is not interested in injections. Would be amenable to other OTC options. She should follow-up in neurology in 4-6 weeks. She has my card for any further questions or concerns. History of Present Illness History of Present Illness Chief Complaint: headache Narrative: Handedness: right. HPI: Ms. Hendrickson is a 19 year-old young woman with migraine headaches, IBS, anxiety, depression, and rosacea. Ms. Hendrickson has a history of rare headaches that became more frequent about 6 months ago. Her typical headaches are bitemporal and associated with visual aura (sparkles, green zig zags, etc), nausea, photophobia, and kinesiophobia. She has no associated autonomic features such as tearing or nasal discharge. Her typical headaches come in waves of 10-30min lasting typically an entire day. During this time, her headache pain alternates between the right and left temporal regions. Her headaches have been occurring 1-2x per week. She uses OTC Excedrin which reduces her symptoms, but symptoms still last the rest of the day. She was recommended propranolol, but stopped this after 1-2 doses due to dizziness. Sumatriptan 25mg causes her to sleep ~14 hours. She has a family history of headaches in her maternal grandmother and in a maternal cousin. Ms. Hendrickson has a personal history of motion/car sickness. Also in the last 6 months, she has had intermittent cold hands and mottling. Along with this is a numb/heaviness. She stopped her OCPs about 1 year ago as she was concerned it was worsening her rosacea and causing worsening mood. Her rosecea has improved. Her mood has worsened with both depression and anxiety, worse more so in the last 6 months. She notes trial of several medications for mood, all with side effect - I do not know the specific medications. Also, she has been having irregular menstruation since stopping OCPs including pre-menstrual symptoms, but no menses. She started OTC Shana's Wart about 1 month ago for her anxiety. Unclear benefits. Now to the issue at hand. On 08/19/20, she developed her usual migraine headache with off and on bitemporal pain throughout the day. However, the next day the headache was still there. Her headache continued until Friday08/23/20 afternoon at which time she noticed that her right hand became cold and purple. This was not painful. At the same time, she also noted numbness and tingling in the left foot. She presented to the [facility] ER. In the ER, her headache continued to alternate between the left episcopalian and the right te mple. When involving the right episcopalian, she noted right hand coldness and discoloration along with tingling in the left foot. When the pain was in the left episcopalian, the left hand became cold and discolored with tingling in the right foot (opposites). The pain has been primarily on the right which is why she feels symptoms are worse in the right hand and left leg. Today, she notes left leg weakness/heaviness. Notes she can still walk, but is walking with a limp. Her headache has resolved with Toradol and Compazine. Both made her sleepy. She feels she had side effects with the Compazine - describes just not feeling well. She has undergone the work-up as below. Work-up: -CTH (08/23/20): no acute findings. I reviewed these images personally and this is my personal interpretation. -CTA head/neck (08/23/20): unremarkable. I reviewed these images personally and this is my personal interpretation. -CTA Thorax (08/23/20): fatty liver otherwise unremarkable. -MRI brain w/o (08/24/20): no acute findings. Normal brain. I reviewed these images personally and this is my personal interpretation. -TTE (08/24/20): EF 60%, no wall motion abnormalities. LA normal. No valve abnormalities. -Labs (current visit): ESR 9, CRP 0.23, CBC nml, Tbili 1.1 -Labs (05/17/20): 1.72 Consults Requesting physician: Maria G Arreaga Review of Systems All systems reviewed & are unremarkable except as noted in HPI and below PFSH Medical History Chronic rhinitis Generalized anxiety disorder Irritable bowel Major depressive disorder Migraine headache with aura Oral contraceptive pill surveillance Syncope Urticaria Surgical History S/P tonsillectomy (04/26/19) Tonsillectomy and frenulectomy Family History Mother No problems noted. Father No problems noted. Sister No problems noted. Maternal Grandfather Heart disease Essential hypertension Myocardial infarction Maternal Grandmother Depression Paternal Grandfather No problems noted. Paternal Grandmother No problems noted. Social History Smoking/Tobacco Use Status: Never Smoking risk assessment performed?: Yes Alcohol Intake: never Drug use: Never Substance use type: does not use Caregiver/Support person: No Household members: friend(s) Housing: apartment Communication Needs: Corrective Lenses Do you need help understanding health information?: Never Pets and animals: Yes Pets and animals: cat(s) and other Details: jennifer Sexually active: Yes Do you think of yourself as: straight/heterosexual Current gender identity: female What is your relationship status?: never How often do you talk on the phone with friends or family?: three or more times per week How often do you get together with friends or relatives?: three or more times per week How often do you attend lutheran or anglican services?: decline to answer Do you belong to any clubs or organized social groups?: no Panel score (0-1 are the most socially isolated patients): 1 What type of physical activity do you participate in: other Details: gym Duration: 45-60 minutes/day Frequency: 3-4 times per week Huma/Latter-Day: None Special huma needs: No Seatbelt use: always Helmet use: Yes Helmet use: always Drive intox or ride w/intox medical van driver: No Do you feel safe at home: Yes Do you feel safe in your relationship?: Yes Female Reproductive History Menstrual control method: pills History History 0 Para Hx # Term Pregnancies Multiple births Hx # Pregnancies Ectopic pregnancies AB induced Hx Number of Living Children AB spontaneous Visit Medication and Allergies Active Medications Generic Name Dose Route Start Last Admin Trade Name Freq PRN Reason Stop Dose Admin Acetaminophen 650 mg 08/23/20 22:11 Acetaminophen 650 Mg Supp OR Q4H PRN PRN Cyanocobalamin 500 mcg 08/24/20 08:30 08/24/20 08:07 Cyanocobalamin 500 Mcg Tab PO Not Given DAILY WERNER Dimethicone/Zinc Oxide 0 gm 08/23/20 22:11 Lizette Protect Cream 142 Gm Tube TP PRN PRN Sodium Chloride 500 mls @ 0 mls/hr 08/23/20 14:26 Saline 500ml Bag IV PRN PRN As Directed IV Miscellaneous Supplies 1 each 08/23/20 14:30 Iv Access IV DIRECTED WERNER Iohexol 100 ml 08/23/20 16:00 08/23/20 16:00 Omnipaque 350 Mg/Ml 100 Ml Btl IJ 09/22/20 23:59 100 ml DIRECTED WERNER Administration Ketorolac Tromethamine 30 mg 08/24/20 08:17 08/24/20 11:24 Ketorolac 30 Mg/Ml Vial IVP 08/29/20 08:16 30 mg Q6H PRN PRN Administration Prochlorperazine Edisylate 10 mg 08/24/20 08:17 08/24/20 12:33 Prochlorperazine 10 Mg/2 Ml Vial IVP 10 mg Q4H PRN PRN Administration Sodium Chloride 0 ml 08/23/20 14:26 08/24/20 12:33 Normal Saline Flush 10 Ml Syr IVP 20 ml PRN PRN Administration Verapamil HCl 40 mg 08/25/20 08:30 Verapamil 80 Mg Tab PO DAILY WERNER Allergies seasonal allergies Allergy (Uncoded 05/12/20 14:43) Congestion Exam Narrative Exam Narrative: Physical Exam: Gen: Patient of apparent stated age, NAD Head and face: no facial or cranial abnormalities Neck: Supple, no meningismus, no occipital tenderness CV: + S1, S2, RRR, no murmur Resp: CTA B/L Abd: soft, nontender, nondistended Ext: No edema. No clubbing or cyanosis. No bony deformity. Neuro Exam: Language: fluency, naming, repetition, and comprehension intact; Mental Status: AAOx3, current events intact, fund of knowledge intact; Speech: no dysarthria Cranial nerves: Funduscopy: not performed CN II: visual ramírez intact CN III, IV, : extraocular movements intact, no nystagmus, pupils symmetric and reactive to light CN V: face sensation intact to LT and PP CN VII: no facial asymmetry noted CN VIII: hearing intact bilaterally CN IX, X: palate rises symmetrically CN XI: trapezius/SCM 5/5 bilaterally CN XII: protrudes tongue symmetrically Sensory: intact to vibration and joint position in all extremities; spotty reduced LT and PP in right arm; spotty reduced LT and PP in left foot and left lateral leg; Motor: bulk and tone intact. Fine motor movements intact bilaterally. No pronator drift. Strength 5/5 throughout including the deltoids, biceps, triceps, wrist extensors, hip flexors, knee flexors, knee extensors, ankle flexors, and ankle extensors. noted give way weakness in left leg, but with full strength. Reflexes: 2+ at the biceps, triceps, brachioradialis, patella, and achilles tendons bilaterally; toes down going bilaterally; Coordination: FTN and HTS intact bilaterally Gait: not tested Results Last Vital Signs Temp 37.2 C 08/24/20 16:23 Pulse 83 08/24/20 16:23 Resp 17 08/24/20 16:23 BP 104/53 L 08/24/20 16:23 Pulse Ox 99 08/24/20 16:23 Labs Result diagrams: 08/23/20 14:00 08/23/20 14:00 Labs: Laboratory Results - last 24 hr 08/23/20 08/23/20 08/24/20 14:00 21:30 08:43 ESR 9 Vitamin B12 410 Rheumatoid Factor COVID-19 Source Nasal/nares SARS-CoV-2 (PCR) Negative 08/24/20 08:43 ESR Vitamin B12 Rheumatoid Factor <8.6 COVID-19 Source SARS-CoV-2 (PCR)
[2020-08-24 17:52] VITALS: PULSE 80
[2020-08-25 11:51] LABS: Lyme Ab w Rflx to Lyme Confirm Negative (Negative)
--- NOTE | 2020-08-25 12:23 | PT.INNT ---
Date of service: 08/25/20 Time of Service: 12:23 PT Notes Visit Reasons: PARASTHESIAS Patient was cleared for discharge to home on 08/24/2020. No skilled services provided for this admission. Thank you for the opportunity to participate in the care of this patient. Ashli Bynum PT, DPT, CLT [facility] [place], [place]
[2020-08-25 15:52] LABS: ANA Interpretation Negative (Negative)
[2020-08-28 02:02] LABS: Anaplasma phagocytophilum Negative (Negative); B. miyamotoi PCR Negative (Negative); Babesia divergens/MO-1 Negative (Negative); Babesia duncani Negative (Negative); Babesia microti Negative (Negative); Ehrlichia chaffeensis Negative (Negative); Ehrlichia ewingii/canis Negative (Negative); Ehrlichia muris eauclairensis Negative (Negative)
== END 2020-08-24 18:05 | disposition home or self-care (01) ==
LOC: ER 21:28 → MS 22:39
PROVIDERS: Internal Medicine; Student in an Organized Health Care Education/Training Program; Admitting Provider Family Medicine; Emergency Provider Physician Assistant; PCP Nurse Practitioner; Visit Provider Family Medicine
DX: G43.109 Migraine with aura, not intractable, without status migrainosus (principal); T50.995A Adverse effect of other drugs, medicaments and biological substances, initial encounter; R20.2 Paresthesia of skin; F41.1 Generalized anxiety disorder; K58.9 Irritable bowel syndrome, unspecified; F32.9 Major depressive disorder, single episode, unspecified; R23.0 Cyanosis; R53.1 Weakness; Z20.822 Contact with and (suspected) exposure to COVID-19
CPT/HCPCS: 36415; 70496; 70498; 71275; 80053; 81025; 85652; 87635; 87798; 93005; 96360; 99217; 99219; 99223; 99226; 99285; 70551; 82607; 84484; 85025; 86038; 86140; 86431; 86618; 93010; 93306; J0780; J1885; J3490

== ENCOUNTER 2020-12-29 11:14 | Outpatient (REF) | payer BC, SELFPAY ==
[2020-12-31 14:55] LABS: COVID-19 RT-PCR UVMMC Result Negative (Negative)
== END 2020-12-29 11:15 | disposition home or self-care (01) ==
LOC: LBN 11:14
PROVIDERS: PCP Nurse Practitioner; Visit Provider Physician Assistant
DX: Z20.822 Contact with and (suspected) exposure to COVID-19 (principal)
CPT/HCPCS: U0003

== ENCOUNTER 2021-04-09 11:05 | Outpatient (REF) | payer SELFPAY ==
[2021-04-10 16:22] LABS: COVID-19 RT-PCR UVMMC Result Negative (Negative)
== END 2021-04-09 11:06 | disposition home or self-care (01) ==
LOC: LBN 11:05
PROVIDERS: PCP Nurse Practitioner; Visit Provider Physician Assistant
DX: Z20.822 Contact with and (suspected) exposure to COVID-19 (principal)
CPT/HCPCS: U0003

== ENCOUNTER 2023-01-09 06:18 | Emergency (ER) | payer SELFPAY | END 2023-01-09 09:04 | disposition left against medical advice (07) | LOC: ER 08:45 | PROVIDERS: PCP Nurse Practitioner Family | DX: M54.50 Low back pain, unspecified (principal); R11.10 Vomiting, unspecified; Z53.21 Procedure and treatment not carried out due to patient leaving prior to being seen by health care provider ==

== ENCOUNTER 2023-01-12 12:18 | Emergency (ER) | payer SELFPAY ==
--- NOTE | 2023-01-12 12:15 | DI.CT_ITS ---
Exam(s) CT RENAL COLIC WO EXAM: CT RENAL COLIC WO CLINICAL HISTORY: flank pain. TECHNIQUE: Imaging Protocol: Axial computed tomography images with coronal and sagittal reformatted images were created and reviewed. CONTRAST MATERIAL: Noncontrast COMPARISON: CR ABD FLAT UPRIGHT PA CHEST from 12/13/[address] THORAX CTA from 08/23/2020 FINDINGS: ABDOMEN: Lung Bases: Normal where visualized. Liver: Normal attenuation. No measurable mass. Gallbladder and biliary tract: No radiodense calculus or dilation. Pancreas: Normal density, no calcifications or inflammatory process. Spleen: Normal. Kidneys: Right kidney enlarged. Collecting system dilated down to level of the ureteral vesicle junc tion due to a 2 millimeter stone. Few other tiny intrarenal calcifications are seen. There is mild medullary nephrocalcinosis. No masses seen. Adrenal glands: No masses seen. Abdominal Aorta: Abdominal portion non-dilated. Soft tissues: Unremarkable. PELVIS: Bladder: Symmetric distention, no gross wall thickening. No evidence of stones.No visible mass. Bowel: No obstruction or bowel wall thickening. Appendix normal. Reproductive: Unremarkable. Uterus retroverted. Peritoneal cavity: No ascites, collection or mesenteric inflammatory response. Bones: Unremarkable for age.. IMPRESSION: [id number] right hydronephrosis secondary to 2 millimeter calculus at the right ureterovesical junction. Other tiny nonobstructing bilateral calculi. Mild medullary nephrocalcinosis. RADIATION DOSE DELIVERED: 901.33mGy.cm Total DLP DATA REPOSITORY: All CT scans at this facility are submitted to the National Radiology Data Registry (NRDR) Dose Index Registry (DIR) with the [employer] (ACR). RADIATION OPTIMIZATION: All CT scans at this facility use at least one of these dose optimization te chniques: automated exposure control; mA and/or kV adjustment per patient size (includes targeted exa ms where dose is matched to clinical indication); or iterative reconstruction.
[2023-01-12 12:21] VITALS: BP 154/93; PULSE 84; RESP 20; TEMP 36.8; O2SAT 100
--- NOTE | 2023-01-12 12:23 | W.ED.GENAD ---
Discharge Plan Disposition Patient Disposition: Home Discharge Details Clinical Impression: Kidney stone on right side Primary Care Provider: Ezekiel Alejandro ED Provider: Reinaldo Montero Home Meds and New Rx's Prescriptions: New ondansetron 4 mg tablet,disintegrating 4 mg PO Q6H PRNQty: 14 0RF Continued sumatriptan succinate [Imitrex] 50 mg tablet 50 mg PO ONCE PRN (Reason: migraine headache) Qty: 90 0RF Hold Instructions: Home Medication placed on hold at Doctor's office Rx Instructions: Take 1 pill at first onset of migraine headache. Repeat in 2 hours of headache persists benzonatate [Tessalon Perles] 100 mg capsule 100 mg PO TID PRN (Reason: cough) Qty: 14 0RF acetylcysteine 500 mg capsule 500 mg PO BID Qty: 60 0RF Discharge Instructions Instructions: Kidney Stones (ED) Additional Instructions: You have a 3 mm stone on the right just about to get into your bladder. Hydrate well. Strain your urine. Follow-up with your primary care doctor next week. A prescription for Zofran was sent to your pharmacy in case you get nauseous. You may take ibuprofen 400 mg every 6 hours for the pain you also take Tylenol 1 g every 6 hours for the pain. Medical Decision Making 22 yo with rlq /flank pain pos hematuria, no infection CT scan conforms distal 3 mm stone with mod hydro patient painfree after one dose of toradol dc home with pcp f/up HPI General Date/Time Provider Initiated Documentation: 01/12/23 12:23. HPI Narrative: 22-year-old presents to the emergency department with 4 days of right lower lower back pain that radiates around like a belt to her anterior thigh. Not associated with any urinary symptoms. She did take a test yesterday just to make sure she was not because she did change control pills last week. This is associated with nausea and vomiting. No fevers no chills. She actually came to the emergency department couple days ago but felt better after vomiting in the waiting room and decided to go home. No diarrhea. Related Data Home Medications Medication Instructions Recorded Confirmed sumatriptan succinate 50 mg tablet 50 mg PO ONCE PRN migraine 05/12/20 01/12/23 (Imitrex) headache #90 tabs acetylcysteine 500 mg capsule 500 mg PO BID #60 caps 08/24/20 01/12/23 benzonatate 100 mg capsule 100 mg PO TID PRN cough #14 caps 04/09/21 04/09/21 (Tessalon Perles) ondansetron 4 mg disintegrating 4 mg PO Q6H PRN #14 tabs 01/12/23 tablet Previous Rx's Medication Instructions Recorded sumatriptan succinate 50 mg tablet 50 mg PO ONCE PRN migraine 05/12/20 (Imitrex) headache #90 tabs acetylcysteine 500 mg capsule 500 mg PO BID #60 caps 08/24/20 benzonatate 100 mg capsule 100 mg PO TID PRN cough #14 caps 04/09/21 (Tessalon Perles) ondansetron 4 mg disintegrating 4 mg PO Q6H PRN #14 tabs 01/12/23 tablet Allergies Allergy/AdvReac Type Severity Reaction Status Date / Time metronidazole AdvReac Hives Unverified 01/12/23 12:25 seasonal allergies Allergy Congestion Uncoded 04/09/21 09:33 General BORIS: 2 Review of Systems Constitutional Comments: 10 point review of symptoms is negative unless otherwise specified in HPI. PFSH All Active Problems (Updated 01/12/23 @ 14:14 by Reinaldo Montero MD) Kidney stone on right side (Acute) Autonomic dysfunction (Chronic) Left leg weakness (Acute) Paresthesia (Acute) Cyanosis of skin (Acute) Migraine headache with aura (Chronic) Major depressive disorder (Chronic) Generalized anxiety disorder (Chronic) Irritable bowel (Chronic) Systolic murmur (Chronic) Medical History Chronic rhinitis Generalized anxiety disorder Irritable bowel Major depressive disorder Migraine headache with aura Oral contraceptive pill surveillance Syncope Urticaria Surgical History S/P tonsillectomy (04/26/19) Tonsillectomy and frenulectomy Family History Mother No problems noted. Father No problems noted. Sister No problems noted. Maternal Grandfather Heart disease Essential hypertension Myocardial infarction Maternal Grandmother Depression Paternal Grandfather No problems noted. Paternal Grandmother No problems noted. Social History Smoking/Tobacco Use Status: Never Smoking risk assessment performed?: Yes Alcohol Intake: never Drug use: Never Substance use type: does not use Caregiver/Support person: No Household members: friend(s) Housing: apartment Communication Needs: Corrective Lenses Do you need help understanding health information?: Never Pets and animals: Yes Pets and animals: cat(s) and other Details: jennifer Sexually active: Yes Do you think of yourself as: straight/heterosexual Current gender identity: female What is your relationship status?: never How often do you talk on the phone with friends or family?: three or more times per week How often do you get together with friends or relatives?: three or more times per week How often do you attend moravian or taoism services?: decline to answer Do you belong to any clubs or organized social groups?: no Panel score (0-1 are the most socially isolated patients): 1 What type of physical activity do you participate in: other Details: gym Duration: 45-60 minutes/day Frequency: 3-4 times per week Huma/Baptist: None Special huma needs: No Seatbelt use: always Helmet use: Yes Helmet use: always Drive intox or ride w/intox local hazmat driver: No Do you feel safe at home: Yes Do you feel safe in your relationship?: Yes Female Reproductive History Menstrual control method: pills History History 0 Para Hx # Term Pregnancies Multiple births Hx # Pregnancies Ectopic pregnancies AB induced Hx Number of Living Children AB spontaneous Exam Narrative Exam Narrative: General: A,A Ox3, Calm, no apparent distress, well developed, pleasant and cooperative Head Size/Shape: normocephalic, atraumatic Eyes Pupils: PERRLA Extraocular Mobility: intact and symmetrical Conjunctiva: non-injected, anicteric, no discharge Ears, Nose, Throat Nares: patent bilaterally Oral Cavity: moist Neck: no masses, no crepitus Lymph Nodes: no cervical lymphadenopathy Respiratory Respiratory Effort: no dyspnea Auscultation: clear to auscultation bilaterally, normal breath sounds, no wheezing, no rales/crackles Cardiovascular Heart Auscultation: regular rate and rhythm, normal S1, normal S2, no murmurs, no rubs, no gallops, Abdomen Inspection and Palpation: soft, non-tender, non-distended, no hepatosplenomegaly No CVAT Musculoskeletal System Joints, Bones, and Muscles: no deformities Extremities: warm and well-perfused, no cyanosis, capillary refill <2 seconds Skin Skin Inspection: no rash, no lesions, no bruising Neurological Motor: normal tone, normal strength, moving all extremities equally Psychiatric: good insight, good judgement, normal mood and affect
[2023-01-12] MEDS: Normal Saline 1,000 ML 1000 ML IV (12:58)
[2023-01-12 12:59] LABS: Bilirubin Negative (Negative); Blood Small (Negative); Clarity Sl Cloudy (Clear); Glucose Negative (Negative); Ketones Negative (Negative); Leukocyte Esterase Negative (Negative); Nitrite Negative (Negative); Urobilinogen 0.2 mg/dL (Up to 0.2); pH 6.5 (5-8)
[2023-01-12] MEDS: Ketorolac 15 MG/ML VIAL IVP (13:03)
[2023-01-12] MEDS: Ondansetron 4 MG/2 ML VIAL IVP (13:03)
[2023-01-12 13:06] LABS: Bacteria Few HPF (Negative); C & S Indicated? No/Sq. Contamination; Casts Negative LPF (Negative); Crystals Negative HPF (Negative); Epithelial Cells Many HPF (Negative); Mucus Trace (Negative); WBC 0-2 HPF (0-5)
[2023-01-12 13:15] VITALS: BP 110/63; PULSE 68; RESP 16; TEMP 37; O2SAT 99
--- NOTE | 2023-01-12 14:04 | DI.VRAD_ITS ---
PROCEDURE INFORMATION: Exam: CT Abdomen And Pelvis Without Contrast Exam date and time: 01/12/2023 1:24 PM Age: 22 years old Clinical indication: Abdominal pain; Right; Patient HX: Flank pain, laterality not specified TECHNIQUE: Imaging protocol: Computed tomography of the abdomen and pelvis without contrast. COMPARISON: CR ABD FLAT UPRIGHT PA CHEST 12/13/2017 9:58 PM FINDINGS: Lungs: The lung bases are clear. Pleural effusion is not seen. Liver: No focal intrahepatic abnormality on this noncontrast enhanced exam Gallbladder and bile ducts: No calcified gallstones. No biliary ductal dilatation. Pancreas: Pancreas is unremarkable Spleen: Spleen is unremarkable Adrenal glands: Adrenals are unremarkable Kidneys and ureters: There is subtle medullary nephrocalcinosis. There is a punctate nonobstructing calculus in the left mid kidney. No left ureteral calculi are identified. On the right, there is [id number] right hydroureteronephrosis. This is secondary to a tiny calculus at the right ureteral vesicular junction. This measures approximately 3 mm in diameter on series 3, image 726. Stomach and bowel: Non-opacified loops of bowel are unremarkable. No evidence of bowel obstruction. No discrete mass or pneumatosis. Appendix: The appendix is visualized. It is unremarkable. No acute appendicitis. Intraperitoneal space: No significant ascites, focal collections or free intraperitoneal air. Vasculature: Unremarkable. No abdominal aortic aneurysm. Lymph nodes: Small nodes are nonenlarged by size criteria Urinary bladder: The bladder is nondistended. No bladder calculi are identified. Reproductive: The uterus is anteverted. There is no significant adnexal abnormality Bones/joints: No acute bony abnormality Soft tissues: There is a small fat containing umbilical hernia. Subcutaneous soft tissues are otherwise unremarkable IMPRESSION: [id number] right hydroureteronephrosis secondary to a 3 mm calculus at the right ureteral vesicular junction. Punctate nonobstructing calculus left kidney. Subtle medullary nephrocalcinosis. No left ureteral calculi or hydronephrosis. Dictated and Authenticated by: Amada Mansfield MD. Ordering:DARCI Najera MD
[2023-01-12 14:31] VITALS: BP 113/65; PULSE 75; RESP 16; TEMP 36.9; O2SAT 98
== END 2023-01-12 14:34 | disposition home or self-care (01) ==
PROVIDERS: Emergency Provider Emergency Medicine; PCP Nurse Practitioner Family
DX: N13.2 Hydronephrosis with renal and ureteral calculous obstruction (principal); E83.59 Other disorders of calcium metabolism; N29 Other disorders of kidney and ureter in diseases classified elsewhere; R11.0 Nausea
CPT/HCPCS: 36415; 81025; 99284; 74176; 81003; 81015; 99283; J1885; J2405

== ENCOUNTER 2023-08-28 09:41 | Outpatient (REF) | payer SELFPAY ==
--- NOTE | 2023-08-28 09:00 | PAPFT_PTH ---
PATIENT: Chapis Hendrickson LOC: [facility] U#:[id number] AGE/SX: 22/F ROOM: RE08/28/[address]: Ezekiel Reynoso DNP : 2000 BED: DIS: 08/28/2023 SPEC #: [id number] RECD: 08/28/23 13:05 STATUS: KOURTNEY REYanick #: [id number] BARBRA: 08/28/23 09:[address]: Ezekiel Alejandro DEPT: [facility] Cytology RECD BY: Claudia Ellington Tissues: 1 - CX/ENDOCX FOR PAP SMEARS Procedures: PAP THIN PREP/UVM Screening Comments: [id number] (CHLAMYDIA/GC)
[2023-08-29 15:44] LABS: Chlamydia Result Negative (Negative); GC Result Negative (Negative)
== END 2023-08-28 09:42 | disposition home or self-care (01) ==
LOC: LBN 09:41
PROVIDERS: PCP Nurse Practitioner Family; Visit Provider Nurse Practitioner Family
DX: Z12.4 Encounter for screening for malignant neoplasm of cervix (principal)
CPT/HCPCS: 87491; 87591; 88142

== ENCOUNTER 2025-03-23 11:51 | Outpatient (REF) | payer SELFPAY | END 2025-03-23 11:52 | disposition home or self-care (01) | LOC: NCHCN 11:51 | PROVIDERS: PCP Nurse Practitioner Family; Visit Provider Physician Assistant | DX: N39.0 Urinary tract infection, site not specified (principal) | CPT/HCPCS: 87086 ==

== ENCOUNTER 2025-04-07 10:04 | Outpatient (REF) | payer SELFPAY ==
[2025-04-09 09:04] LABS: Bacterial Vaginosis (BV) Negative (Negative); Candida glabrata Negative (Negative); Candida species group Negative (Negative); Chlamydia Result Negative (Negative); GC Result Negative (Negative)
== END 2025-04-07 10:05 | disposition home or self-care (01) ==
LOC: NCHCN 10:04
PROVIDERS: PCP Nurse Practitioner Family; Visit Provider Physician Assistant
DX: N89.8 Other specified noninflammatory disorders of vagina (principal)
CPT/HCPCS: 81513; 87481; 87491; 87591; 87661